=== PATIENT | male | born 1965 | race Caucasian/White ===

== ENCOUNTER 2017-06-11 16:34 | Emergency (ER) | payer MEDICAID, SELFPAY ==
[2017-06-11] VITALS (7 sets, daily range): BP systolic 116–139; BP diastolic 72–75; PULSE 70–73; RESP 14–18; TEMP 36.7; O2SAT 96–99; BMI 25.4
[2017-06-11 17:24] LABS: Absolute Lymphocyte Count 2.22 X10^3/ul (0.83-4.51); Basophil# 0.05 X10^3/uL; Basophil% 0.7 % (0-1); Eosinophil# 0.12 X10^3/uL; Eosinophils% 1.7 % (0-5); Hemoglobin 14.2 g/dl (13.0-16.5); Lymphocyte # 2.22 X10^3/ul (4.0); Lymphocyte % 31.2 % (19-41); Mean Corp Hgb Conc 33.8 g/gl (32-36); Mean Corpuscular Hgb 30.6 pg (27.0-32.0); Mean Corpuscular Volume 90.5 fL (80-94); Mean Platelet Vol. 10.1 fl (6.2-12.0); Monocyte# 0.67 X10^3/uL; Monocyte% 9.4 % (0-10); Neutrophil # 4.02 X10^3/uL (2.7-7.7); Neutrophil % 56.6 % (47-70); Platelet Count 154 K/mm3 (150-450); RBC Distribution Width CV 14.8 % (11.6-14.6); RBC Distribution Width SD 48.9 fl (35.1-43.9); Red Blood Count 4.64 M/mm3 (4.6-6.2); White Blood Count 7.1 K/mm3 (4.4-11.0)
[2017-06-11 17:25] LABS: POSITIVE COUNT NO; POSITIVE DIFFERENTIAL NO; POSITIVE MORPHOLOGY NO
--- NOTE | 2017-06-11 17:29 | EKG12_ITS ---
Test Reason : MENTAL HEALTH Blood Pressure : / mmHG Vent. Rate : 068 BPM Atrial Rate : 068 BPM P-R Int : 158 ms QRS Dur : 078 ms QT Int : 406 ms P-R-T Axes : 037 005 029 degrees QTc Int : 431 ms Normal sinus rhythm Normal ECG Confirmed by TYRONE REED, JESSENIA ([id number]), commissioning editor IMMANUEL MERIDA ([id number] on 06/19/2017 1:44:49 PM Referred By: BRYANT Confirmed By:JESSENIA HANSEN MD
--- NOTE | 2017-06-11 17:35 | ED.DCSUM_ITS ---
- ER Visit Summary Date of Service: 06/11/17 Chief Complaint: Suicidal ideation History of Present Illness: The patient is a 52 M presenting with suicidal ideation. Patient was seen by his psychiatrist today and sent into the ED for inpatient psychiatric admission. He has been experiencing suicidal ideation, visual and auditory hallucinations. No recent change in medications. History of schizophrenia. Physical Examination: Vitals are stable. Patient is afebrile. Alert no acute distress. HEENT exam is unremarkable. Neck is supple. Lungs are clear and equal bilaterally. Heart is regular rate and rhythm. Abdomen is soft nontender nondistended. Extremities are unremarkable. Skin is warm and dry. No focal neurologic deficit. Depressed affect with suicidal thoughts Remainder of exam is unremarkable. Emergency Department Course and Treatment: CBC, chemistries unremarkable other than sodium 132. Liver enzymes are normal. urinalysis unremarkable. Tox positive for benzos. Alcohol negative. EKG is sinus rhythm rate of 68. Discussed with the counseling center for evaluation. Disposition: Per counseling center Impression: Suicidal ideation This note was generated with [employer] dictation software. It may contain incorrect words, spelling, and punctuation that were not noted in review of the chart prior to signing ED Disposition - Plan for ED Patient: Chief Complaint: Suicidal Referrals: Doug Layton Chi, MD [Primary Care Provider] -
[2017-06-11 17:39] LABS: Bacteria 0 SEEN /hpf (None Seen); Mucous, Urine 0 SEEN /hpf (<or=2+); White Blood Cells 0 SEEN /hpf (0-5)
[2017-06-11 17:52] LABS: Color, Urine Yellow (Yellow); Glucose, Dipstick Normal (Normal); Ketone-Dipstick Negative (Negative); Leukocyte Esterase-Dipstick Negative /ul (Negative); Nitrite-Dipstick Negative (Negative); Occult Blood-Urine 25 /ul (Negative); Protein-Dipstick Negative (Negative); Urine Bilirubin Dipstick Negative (Negative); Urine Clarity Sl. Cloudy (Clear); Urine Urobilinogen 1 mg/dl (Normal)
[2017-06-11 18:17] LABS: Amphetamine Urine VISTA NEGATIVE (<1000 ng/mL); Barbiturate Urine VISTA NEGATIVE (< 200 ng/mL); Benzodiazepine Urine VISTA POSITIVE (< 200 ng/mL); Cocaine Urine VISTA NEGATIVE (< 300 ng/mL); Ecstacy Urine VISTA NEGATIVE (< 500 ng/mL); Methadone Urine VISTA NEGATIVE (< 300 ng/mL); PCP Urine VISTA NEGATIVE (< 25 ng/mL); THC Urine VISTA NEGATIVE (< 50 ng/mL); Vista UDS pH Range 7
[2017-06-11 18:17] LABS: Alcohol, Blood (Medical)-Serum < 3.0 mg/dL
[2017-06-11 18:24] LABS: AST(SGOT) 11 U/L (15-37); Alanine Aminotransfer ALT/SGPT 20 U/L (16-61); Alkaline Phosphatase 67 U/L (45-117); Bilirubin, Direct 0.09 mg/dL (0.00-0.30); Globulin 3.3 g/dL (2.2-4.2); Protein, Total 7.3 g/dL (6.4-8.2)
[2017-06-11 18:27] LABS: Anion Gap 7 (5-15); BUN 9 mg/dL (7-18); BUN/Creat Ratio 12.6 RATIO (10-20); Calcium,Total 8.4 mg/dL (8.5-10.1); Chloride 97 mmol/L (98-107); Creatinine, Serum 0.72 mg/dL (0.70-1.30); EST Glomerular Filtration Rate 122 mL/min (>60); Est Glom Filt Rate - Afr Amer 147 mL/min (>60); Estimated Creatinine Clearance 136.37 ml/min; Glucose 90 mg/dL (74-106); Potassium 3.8 mmol/L (3.5-5.1); Sodium Level 132 mmol/L (136-145)
[2017-06-11 18:30] LABS: Squamous Epithelial Cells - UA 0-5 SEEN /hpf (0-5)
[2017-06-11 18:32] LABS: Red Blood Cells-Urine 0-5 SEEN /hpf (0-5)
--- NOTE | 2017-06-11 20:35 | NURSING ---
CALLED [facility] TO SEE THIS PT, RICHARD IS REGISTER OF [facility] WITH TWO OTHERS PENDING
--- NOTE | 2017-06-11 23:21 | ED.RN ---
Viviana from Crisis called and updated on patients condition. She remains at [facility] and will ob over to see patient as soon as possible.
[2017-06-12] VITALS (21 sets, daily range): BP systolic 113–138; BP diastolic 70–78; PULSE 72–84; RESP 14–20; O2SAT 95–98
--- NOTE | 2017-06-12 17:04 | NURSING ---
OLIVIER WITH CRISIS CALLED AND STATED THAT PATIENT HAS BEEN ACCEPTED AT [facility] WAITING A BED
--- NOTE | 2017-06-12 18:09 | ED.RN ---
ELIAS AT [facility] STATED WE HAVE HAD A LOT OF CODE VIOLETS TODAY, WE ARE TRYING TO GET THE HOSPITAL CALMED DOWN AND THEN WE WILL CALL WITH HIS ROOM
--- NOTE | 2017-06-12 23:13 | ED.RN ---
[facility]cardo called and spoke with admission nurse for possible room assignment. At this time they are not able to accept any new patients into the unit because of multiple code violets and patient acuity is too high. Patient will be first to be accepted tomorrow morning. correction workers made aware at this time. Covering doctor made aware.
[2017-06-13] VITALS (11 sets, daily range): BP systolic 109–131; BP diastolic 71–94; PULSE 16–100; RESP 14–18; TEMP 36.8; O2SAT 95–100
--- NOTE | 2017-06-13 07:49 | NURSING ---
PATIENT REFUSED MORNING MEDICATIONS THIS AM. PT ALSO REFUSED TO HAVE VITALS TAKEN. PT IGNORED RN AND COVERED UP HEAD WITH BLANKET. RN CALLED TO ORDER PATIENT BREAKFAST.
[2017-06-13] MEDS: Divalproex Sodium 250 MG Tablet 500 MG PO ×3 (09:59→20:42)
[2017-06-13] MEDS: Gabapentin 600 MG Tablet 300 MG PO ×3 (10:01→20:42)
[2017-06-13] MEDS: Pantoprazole Sodium 40 MG Tablet PO (10:01)
[2017-06-13] MEDS: Haloperidol 5 MG Tablet 10 MG PO (10:01)
[2017-06-13] MEDS: Benztropine 2 MG Tablet PO (10:01)
[2017-06-13] MEDS: Sertraline 100 MG Tablet 200 MG PO (10:02)
[2017-06-13] MEDS: OXcarbazepine 300 MG Tablet 450 MG PO (10:02)
--- NOTE | 2017-06-13 10:21 | ED.RN ---
patient was finally compliant and took am medications. pt also allowed rn to take vitals. pt went outside with quality assurance group leader and security to smoke. pt is being cooperative.
--- NOTE | 2017-06-13 14:17 | ED.RN ---
1400-Patient sitting up on edge of bed in no distress. Vitals checked as noted. Denies c/o pain. Patient with worker from [facility] out to smoke. Ambulates with steady gait. Await crisis counselor for re-eval and bed assignment at [place]. Await meal tray from nutrition services and meds from pharmacy.
--- NOTE | 2017-06-13 16:30 | ED.RN ---
TID MEDICATION HELD TILL 9PM D/T AFTERNOON DOSE GIVEN AT 3PM.
[2017-06-14] VITALS (15 sets, daily range): BP systolic 104–121; BP diastolic 63–79; PULSE 62–90; RESP 15–18; O2SAT 96–100
[2017-06-14] MEDS: Gabapentin 600 MG Tablet 300 MG PO ×2 (06:19→11:13)
[2017-06-14] MEDS: Divalproex Sodium 250 MG Tablet 500 MG PO ×2 (06:20→11:13)
[2017-06-14] MEDS: Levothyroxine 88 MCG Tablet PO (07:31)
[2017-06-14] MEDS: Haloperidol 5 MG Tablet 10 MG PO (11:15)
[2017-06-14] MEDS: Benztropine 2 MG Tablet PO (11:15)
[2017-06-14] MEDS: OXcarbazepine 300 MG Tablet 450 MG PO (11:17)
[2017-06-14] MEDS: Sertraline 100 MG Tablet 200 MG PO (11:17)
[2017-06-14] MEDS: Pantoprazole Sodium 40 MG Tablet PO (11:27)
--- NOTE | 2017-06-14 12:25 | ED.RN ---
CALLED NOAM HAD TO LEAVE MESSAGE WITH ELIAS IN THE CENTRAL NURSING OFFICE
== END 2017-06-14 16:55 ==
PROVIDERS: Emergency Provider Emergency Medicine; Family Provider Family Medicine Geriatric Medicine; PCP Family Medicine Geriatric Medicine
DX: F32.9 Major depressive disorder, single episode, unspecified (principal); F20.9 Schizophrenia, unspecified; R45.851 Suicidal ideations; Z72.0 Tobacco use; Z79.899 Other long term (current) drug therapy
CPT/HCPCS: 36415; 80048; 80076; 80307; 80320; 81001; 85025; 93005; 99284; G0480

== ENCOUNTER → 2017-07-10 08:07 | Outpatient (CLI) | payer MEDICAID, SELFPAY ==
[2017-07-10 10:08] LABS: AST(SGOT) 19 U/L (15-37); Alanine Aminotransfer ALT/SGPT 26 U/L (16-61); Albumin, Serum 3.9 g/dL (3.2-5.0); Alkaline Phosphatase 76 U/L (45-117); Cholesterol 122 mg/dL (200); Globulin 3.4 g/dL (2.2-4.2); High Density Lipoprotein 41 mg/dL; Protein, Total 7.3 g/dL (6.4-8.2); Triglycerides 99 mg/dL; Very Low Density Lipoprotein 20 mg/dL (5-40)
== END ==
PROVIDERS: Family Provider Family Medicine Geriatric Medicine; PCP Family Medicine Geriatric Medicine; Visit Provider Physician Assistant Medical
DX: E78.5 Hyperlipidemia, unspecified (principal); Z79.899 Other long term (current) drug therapy
CPT/HCPCS: 36415; 80061; 80076

== ENCOUNTER 2017-07-20 17:12 | Emergency (ER) | payer MEDICAID, SELFPAY ==
[2017-07-20 17:14] VITALS: BP 139/67; PULSE 114; RESP 20; TEMP 36.3; O2SAT 99; BMI 29.4
[2017-07-20 17:53] LABS: Absolute Lymphocyte Count 1.98 X10^3/ul (0.83-4.51); Absolute Neutrophil Count 4.4 X10^3/uL (2.0-7.7); Basophil# 0.03 X10^3/uL; Basophil% 0.4 % (0-1); Eosinophil# 0.08 X10^3/uL; Eosinophils% 1.1 % (0-5); Hematocrit 43.5 % (40-54); Hemoglobin 14.6 g/dl (13.0-16.5); Lymphocyte # 1.98 X10^3/ul (4.0); Lymphocyte % 28.2 % (19-41); Mean Corp Hgb Conc 33.6 g/gl (32-36); Mean Corpuscular Hgb 30.2 pg (27.0-32.0); Mean Corpuscular Volume 90.1 fL (80-94); Mean Platelet Vol. 9.2 fl (6.2-12.0); Monocyte# 0.51 X10^3/uL; Monocyte% 7.3 % (0-10); Neutrophil # 4.41 X10^3/uL (2.7-7.7); Neutrophil % 62.7 % (47-70); Platelet Count 179 K/mm3 (150-450); RBC Distribution Width CV 14.5 % (11.6-14.6); RBC Distribution Width SD 47.8 fl (35.1-43.9); Red Blood Count 4.83 M/mm3 (4.6-6.2)
[2017-07-20] MEDS: LORazepam 2 MG/ML Syringe 0.5 MG IV (17:56)
[2017-07-20 17:57] LABS: POSITIVE COUNT NO; POSITIVE DIFFERENTIAL NO; POSITIVE MORPHOLOGY NO
[2017-07-20 18:26] LABS: Anion Gap 9 (5-15); BUN 13 mg/dL (7-18); BUN/Creat Ratio 16.1 RATIO (10-20); Calcium,Total 8.7 mg/dL (8.5-10.1); Chloride 100 mmol/L (98-107); Creatinine, Serum 0.81 mg/dL (0.70-1.30); EST Glomerular Filtration Rate 106 mL/min (>60); Est Glom Filt Rate - Afr Amer 128 mL/min (>60); Estimated Creatinine Clearance 107.65 ml/min; Glucose 136 mg/dL (74-106); Potassium 3.3 mmol/L (3.5-5.1); Sodium Level 133 mmol/L (136-145)
[2017-07-20 18:41] LABS: Valproic Acid (Depakene) Level 58 ug/mL (50-100)
--- NOTE | 2017-07-20 18:57 | ED.DCSUM_ITS ---
- ER Visit Summary Date of Service: 07/20/17 Chief Complaint: Seizure History of Present Illness: The patient is a 52 M with reported seizure lasting approximately 10 minutes witnessed by longterm staff member. She states that he had taken a shower then walked into the living room. He fell to the floor on his right side and started shaking with grand mal seizure like activity. She called EMS. Patient was reportedly post ictal with EMS. Staff member does report the patient's Depakote was recently decreased from 3 times daily to twice daily by his psychiatrist. They now realize that the psychiatrist had not originally order that medication. Last seizure was approximately 2 years ago. Patient follows with a neurologist in [place]. Physical Examination: Blood pressure is 139/67, temperature 97.4, heart rate 114 , respiratory rate 20, pulse ox 99% on room air. Head and neck examination is unremarkable. I see no sign of trauma. There is no tongue injury. Heart is regular rate and rhythm. Lung sounds are clear. Abdomen is soft and nontender. Patient does move all 4 extremities and answers questions appropriately. Test Results: CBC is unremarkable. Chemistry studies reveal a sodium of 133 and potassium 3.3. His glucose is 136. His Depakote level is on the lower end of therapeutic at 58. Emergency Department Course and Treatment: Patient was given 0.5 mg of IV Ativan. On repeat evaluation is resting comfortably without complaint. He is given a dose of Depakote 500 mg here. They are to increase his Depakote dosing back to the original 3 times a day and have his Depakote level rechecked next week. He was sent with a prescription for Diastat as needed. Treatment Plan: [] Disposition: Discharge Impression: Breakthrough seizure This note was generated with [employer] dictation software. It may contain incorrect words, spelling, and punctuation that were not noted in review of the chart prior to signing ED Disposition - Plan for ED Patient: Disposition: Home or Assisted Living Chief Complaint: Anxiety Instructions: ED Seizure Recurrent Prescriptions: Diazepam 1 each RC X1 PRN #1 kit PRN Reason: Seizure Referrals: Doug Layton Chi, MD [Primary Care Provider] - Additional Instructions: Increase Depakote to three times a day and have Depakote level rechecked in 1 week.
--- NOTE | 2017-07-20 19:04 | DCINST.ED_ITS ---
ED Disposition - Plan for ED Patient: Disposition: Home or Assisted Living Chief Complaint: Anxiety Instructions: ED Seizure Recurrent Prescriptions: Diazepam 1 each RECTAL X1 PRN #1 kit PRN Reason: Seizure Referrals: Doug Layton Chi, MD [Primary Care Provider] - Additional Instructions: Increase Depakote to three times a day and have Depakote level rechecked in 1 week.
--- NOTE | 2017-07-20 19:06 | ED.DEP ---
ED Disposition - Plan for ED Patient: Disposition: Home or Assisted Living Chief Complaint: Anxiety Instructions: ED Seizure Recurrent Prescriptions: Diazepam 1 each RC X1 PRN #1 kit PRN Reason: Seizure Referrals: Doug Layton Chi, MD [Primary Care Provider] - Additional Instructions: Increase Depakote to three times a day and have Depakote level rechecked in 1 week.
[2017-07-20] MEDS: Divalproex Sodium 250 MG Tablet 500 MG PO (19:12)
[2017-07-20 19:37] VITALS: BP 110/64; PULSE 68; RESP 16; O2SAT 99
[2017-07-20 20:50] VITALS: BP 111/64; PULSE 73; RESP 14
== END 2017-07-20 20:53 | disposition home or self-care (01) ==
PROVIDERS: Emergency Provider Emergency Medicine; Family Provider Family Medicine Geriatric Medicine; PCP Family Medicine Geriatric Medicine
DX: G40.409 Other generalized epilepsy and epileptic syndromes, not intractable, without status epilepticus (principal); J44.9 Chronic obstructive pulmonary disease, unspecified; E11.9 Type 2 diabetes mellitus without complications; I10 Essential (primary) hypertension; K21.9 Gastro-esophageal reflux disease without esophagitis; F32.9 Major depressive disorder, single episode, unspecified; F41.9 Anxiety disorder, unspecified; Z72.0 Tobacco use; Z79.899 Other long term (current) drug therapy
CPT/HCPCS: 80048; 80164; 85025; 96374; 99285; A4216

== ENCOUNTER → 2017-09-18 10:57 | Outpatient (CLI) | payer MEDICAID, SELFPAY ==
[2017-09-18 11:42] LABS: Absolute Lymphocyte Count 1.64 X10^3/ul (0.83-4.51); Absolute Neutrophil Count 3.3 X10^3/uL (2.0-7.7); Basophil# 0.04 X10^3/uL; Basophil% 0.7 % (0-1); Eosinophil# 0.11 X10^3/uL; Eosinophils% 1.9 % (0-5); Hematocrit 42.1 % (40-54); Lymphocyte # 1.64 X10^3/ul (4.0); Mean Corp Hgb Conc 35.6 g/gl (32-36); Mean Corpuscular Hgb 31.6 pg (27.0-32.0); Mean Corpuscular Volume 88.6 fL (80-94); Mean Platelet Vol. 9.6 fl (6.2-12.0); Neutrophil # 3.33 X10^3/uL (2.7-7.7); Neutrophil % 56.9 % (47-70); POSITIVE COUNT NO; POSITIVE DIFFERENTIAL NO; POSITIVE MORPHOLOGY NO; Platelet Count 166 K/mm3 (150-450); RBC Distribution Width CV 13.8 % (11.6-14.6); RBC Distribution Width SD 44.5 fl (35.1-43.9); Red Blood Count 4.75 M/mm3 (4.6-6.2); White Blood Count 5.9 K/mm3 (4.4-11.0)
[2017-09-18 12:09] LABS: ALB/GLOB Ratio 1.2 RATIO (0.9-2.4); AST(SGOT) 13 U/L (15-37); Alanine Aminotransfer ALT/SGPT 16 U/L (16-61); Albumin, Serum 3.5 g/dL (3.2-5.0); Alkaline Phosphatase 55 U/L (45-117); Anion Gap 6 (5-15); BUN 10 mg/dL (7-18); BUN/Creat Ratio 13.8 RATIO (10-20); Calcium,Total 8.3 mg/dL (8.5-10.1); Chloride 97 mmol/L (98-107); Creatinine, Serum 0.72 mg/dL (0.70-1.30); EST Glomerular Filtration Rate 120 mL/min (>60); Est Glom Filt Rate - Afr Amer 145 mL/min (>60); Glucose 91 mg/dL (74-106); Potassium 4.4 mmol/L (3.5-5.1); Protein, Total 6.5 g/dL (6.4-8.2); Sodium Level 128 mmol/L (136-145); Thyroid Stim Hormone (TSH) 2.79 uIU/mL (0.358-3.74)
== END ==
PROVIDERS: Family Provider Family Medicine Geriatric Medicine; PCP Family Medicine Geriatric Medicine; Visit Provider Family Medicine Geriatric Medicine
DX: E11.9 Type 2 diabetes mellitus without complications (principal); E78.4 Other hyperlipidemia
CPT/HCPCS: 36415; 80053; 84443; 85025

== ENCOUNTER 2017-12-08 14:36 | Emergency (ER) | payer MEDICAID, SELFPAY ==
[2017-12-08] VITALS (9 sets, daily range): BP systolic 106–118; BP diastolic 60–84; PULSE 71–103; RESP 12–15; TEMP 36.7; O2SAT 95–98
--- NOTE | 2017-12-08 15:11 | ED.VISSUMM ---
- ER Visit Summary Date of Service: 12/08/17 Chief Complaint: Mental health evaluation History of Present Illness: The patient is a 52 M who presents with thoughts of harming other people today. Patient states he was having sexual thoughts toward 2 females today. Patient states he felt like he might become aggressive and act on those thoughts. Patient currently denies any suicidal or homicidal ideations. Patient has a history of schizophrenia. Caregiver states that when the patient gets these thoughts he then becomes suicidal later on. Caregiver states that the patient was brought into have evaluation by crisis for possible admission. Physical Examination: Vital signs are stable. Patient is afebrile. Patient is in no acute distress. Oral mucosa is pink and moist. Neck is supple. There is no JVD noted. Heart was regular rate and rhythm. Lungs showed a few scattered wheezes. There is good respiratory effort noted. There are no retractions noted. Abdomen is soft. Bowel sounds are normal. There is no tenderness. Cranial nerves II through XII are intact. There are no focal motor or sensory deficits noted. Patient has a flat affect and a depressed mood. Patient denies any suicidal or homicidal ideations at present time. The remaining physical exam is within normal limits. Test Results: EKG showed normal sinus rhythm with a rate of 66. There are no acute ST or T-wave changes noted. Chest x-ray does not show any acute cardiopulmonary process. CBC was normal. Metabolic profile showed mild hyponatremia of 128 and hypochloremia of 92. Urine tox screen and serum alcohol level were normal. Emergency Department Course and Treatment: Patient was given a liter bolus of normal saline. Crisis was contacted and will be in to evaluate the patient. Crisis contacted [facility] and patient will be transferred there. Currently, we are waiting on a bed there. Disposition: Transfer to [facility] Impression: Schizophrenia This note was generated with [employer] dictation software. It may contain incorrect words, spelling, and punctuation that were not noted in review of the chart prior to signing ED Disposition - Plan for ED Patient: Disposition: Psychiatric Hospital or Unit Chief Complaint: Mental Health Diagnosis: Schizophrenia Referrals: Doug Layton Chi, MD [Primary Care Provider] -
[2017-12-08 15:31] LABS: Absolute Lymphocyte Count 1.69 X10^3/ul (0.83-4.51); Basophil# 0.04 X10^3/uL; Basophil% 0.6 % (0-1); Eosinophil# 0.07 X10^3/uL; Eosinophils% 1.1 % (0-5); Hematocrit 39.2 % (40-54); Hemoglobin 13.7 g/dl (13.0-16.5); Lymphocyte # 1.69 X10^3/ul (4.0); Lymphocyte % 26.2 % (19-41); Mean Corp Hgb Conc 34.9 g/gl (32-36); Mean Corpuscular Hgb 30.6 pg (27.0-32.0); Mean Corpuscular Volume 87.5 fL (80-94); Mean Platelet Vol. 9.4 fl (6.2-12.0); Monocyte# 0.61 X10^3/uL; Monocyte% 9.5 % (0-10); Neutrophil % 62.1 % (47-70); Platelet Count 146 K/mm3 (150-450); RBC Distribution Width CV 14.4 % (11.6-14.6); RBC Distribution Width SD 46.6 fl (35.1-43.9); Red Blood Count 4.48 M/mm3 (4.6-6.2); White Blood Count 6.4 K/mm3 (4.4-11.0)
[2017-12-08 15:35] LABS: POSITIVE COUNT NO; POSITIVE DIFFERENTIAL NO; POSITIVE MORPHOLOGY NO
[2017-12-08 16:06] LABS: Anion Gap 11 (5-15); BUN 8 mg/dL (7-18); BUN/Creat Ratio 10.8 RATIO (10-20); Calcium,Total 8.3 mg/dL (8.5-10.1); Chloride 92 mmol/L (98-107); Creatinine, Serum 0.74 mg/dL (0.70-1.30); EST Glomerular Filtration Rate 117 mL/min (>60); Est Glom Filt Rate - Afr Amer 141 mL/min (>60); Estimated Creatinine Clearance 154.95 ml/min; Glucose 119 mg/dL (74-106); Potassium 3.7 mmol/L (3.5-5.1); Sodium Level 128 mmol/L (136-145)
[2017-12-08 16:17] LABS: Amphetamine Urine VISTA NEGATIVE (<1000 ng/mL); Barbiturate Urine VISTA NEGATIVE (< 200 ng/mL); Benzodiazepine Urine VISTA NEGATIVE (< 200 ng/mL); Cocaine Urine VISTA NEGATIVE (< 300 ng/mL); Ecstacy Urine VISTA NEGATIVE (< 500 ng/mL); Methadone Urine VISTA NEGATIVE (< 300 ng/mL); PCP Urine VISTA NEGATIVE (< 25 ng/mL); THC Urine VISTA NEGATIVE (< 50 ng/mL); Vista UDS pH Range 6
[2017-12-08] MEDS: 0.9% Normal Saline 1,000 ML 1000 ML IV (16:31)
--- NOTE | 2017-12-08 16:34 | NURSING ---
CALLED [facility]IS TO SEE PATIENT
[2017-12-08 22:13] LABS: Valproic Acid (Depakene) Level 76 ug/mL (50-100)
[2017-12-08 22:15] LABS: AST(SGOT) 14 U/L (15-37); Alanine Aminotransfer ALT/SGPT 19 U/L (16-61); Albumin, Serum 3.5 g/dL (3.2-5.0); Alkaline Phosphatase 57 U/L (45-117); Bilirubin, Direct 0.12 mg/dL (0.00-0.30); Globulin 2.8 g/dL (2.2-4.2); Protein, Total 6.3 g/dL (6.4-8.2)
[2017-12-08 22:23] LABS: T4 Total, Thyroxin 9.6 ug/dL (4.5-12.1); Thyroid Stim Hormone (TSH) 2.53 uIU/mL (0.358-3.74)
[2017-12-09] VITALS (15 sets, daily range): BP systolic 82–129; BP diastolic 41–82; PULSE 54–78; RESP 12–20; O2SAT 94–99
--- NOTE | 2017-12-09 09:30 | ED.RN ---
ACCEPTED AT [facility], WAITING ON BED. FIRST ON LIST.
--- NOTE | 2017-12-09 09:54 | ED.RN ---
PLEASE CALL ANTHONY AT [phone] WHEN PT IS TRANSFERRED. SHE IS HIS JAIL NURSE.
[2017-12-09] MEDS: Levothyroxine 88 MCG Tablet PO (10:36)
[2017-12-09] MEDS: Gabapentin 300 MG Capsule PO ×2 (10:37→15:50)
[2017-12-09] MEDS: Sertraline 100 MG Tablet 200 MG PO (10:38)
[2017-12-09] MEDS: OXcarbazepine 300 MG Tablet PO (10:38)
[2017-12-09] MEDS: Divalproex Sodium 250 MG Tablet 500 MG PO ×2 (10:39→15:50)
[2017-12-09] MEDS: Pantoprazole Sodium 40 MG Tablet PO (10:39)
[2017-12-09] MEDS: Benztropine 2 MG Tablet PO (10:40)
[2017-12-09] MEDS: Haloperidol 5 MG Tablet 10 MG PO (10:41)
[2017-12-09] MEDS: busPIRone 5 MG Tablet 10 MG PO ×2 (10:41→15:50)
--- NOTE | 2017-12-09 11:27 | NURSING ---
CALLED [facility] FOR AN UPDATE. ELVER IS WITH A PATIENT
[2017-12-09] MEDS: Acetaminophen 500 MG Tablet 1000 MG PO (15:48)
--- NOTE | 2017-12-09 17:47 | ED.RN ---
1700-pt up to use bathroom. gait steady. denies dizziness. required no assist and was cooperative.
--- NOTE | 2017-12-09 18:05 | NURSING ---
[facility] FOR TRANSPORT. ETA IS ABOUT 15 TO 20 MIN
== END 2017-12-09 18:35 ==
PROVIDERS: Emergency Provider Emergency Medicine; Family Provider Family Medicine Geriatric Medicine; PCP Family Medicine Geriatric Medicine
DX: F20.9 Schizophrenia, unspecified (principal); R56.9 Unspecified convulsions; E87.1 Hypo-osmolality and hyponatremia; E87.8 Other disorders of electrolyte and fluid balance, not elsewhere classified; Z79.899 Other long term (current) drug therapy
CPT/HCPCS: 71045; 80048; 80076; 80164; 80307; 80320; 84436; 84443; 85025; 93005; 96360; 99285; J7030; A4216; G0480

== ENCOUNTER 2018-03-05 05:57 | Day surgery (SDC) | payer MEDICAID, SELFPAY ==
[2018-03-05] VITALS (7 sets, daily range): BP systolic 104–115; BP diastolic 61–83; PULSE 63–85; RESP 18; TEMP 36.3–36.9; O2SAT 95–100; BMI 27.6
[2018-03-05] MEDS: Ipratropium/Albuterol Sulfate 3 ML AMPUL.NEB INHALATION (07:08)
[2018-03-05] MEDS: Lisinopril 2.5 MG Tablet PO (07:15)
[2018-03-05] MEDS: Tetracaine 0.5% Ophthalmic Bottle 1 DRP (07:41)
[2018-03-05] MEDS: Povidone Iodine 30 ML Opthalmic Sol 1 DRP (07:42)
== END 2018-03-05 09:29 | disposition home or self-care (01) ==
LOC: SDC 05:58 → AC 05:59
PROVIDERS: Family Provider Family Medicine Geriatric Medicine; PCP Family Medicine Geriatric Medicine; Referring Provider Ophthalmology; Visit Provider Ophthalmology
PROC: (CPT 66984; principal; 2018-03-05 07:15)
DX: H25.812 Combined forms of age-related cataract, left eye (principal); H26.491 Other secondary cataract, right eye; J44.9 Chronic obstructive pulmonary disease, unspecified; E11.9 Type 2 diabetes mellitus without complications; E07.9 Disorder of thyroid, unspecified; E78.00 Pure hypercholesterolemia, unspecified; K21.9 Gastro-esophageal reflux disease without esophagitis; F20.9 Schizophrenia, unspecified; F32.9 Major depressive disorder, single episode, unspecified; F17.200 Nicotine dependence, unspecified, uncomplicated; Z79.899 Other long term (current) drug therapy; Z96.1 Presence of intraocular lens
CPT/HCPCS: 66984; 94640; J7120; J2405

== ENCOUNTER → 2018-03-22 13:40 | Outpatient (CLI) | payer MEDICAID, SELFPAY ==
[2018-03-15 14:02] VITALS: BMI 27.1
[2018-03-22 17:11] LABS: Absolute Lymphocyte Count 1.73 X10^3/ul (0.83-4.51); Basophil# 0.05 X10^3/uL; Basophil% 0.9 % (0-1); Eosinophil# 0.11 X10^3/uL; Hematocrit 40.6 % (40-54); Hemoglobin 13.6 g/dl (13.0-16.5); Lymphocyte # 1.73 X10^3/ul (4.0); Lymphocyte % 31.4 % (19-41); Mean Corp Hgb Conc 33.5 g/gl (32-36); Mean Corpuscular Hgb 30.2 pg (27.0-32.0); Monocyte# 0.61 X10^3/uL; Monocyte% 11.1 % (0-10); Neutrophil # 2.97 X10^3/uL (2.7-7.7); Neutrophil % 53.9 % (47-70); Platelet Count 199 K/mm3 (150-450); RBC Distribution Width CV 13.9 % (11.6-14.6); RBC Distribution Width SD 45.9 fl (35.1-43.9); Red Blood Count 4.51 M/mm3 (4.6-6.2); White Blood Count 5.5 K/mm3 (4.4-11.0)
[2018-03-22 17:12] LABS: POSITIVE COUNT NO; POSITIVE DIFFERENTIAL NO; POSITIVE MORPHOLOGY NO
[2018-03-22 17:43] LABS: ALB/GLOB Ratio 1.2 RATIO (0.9-2.4); AST(SGOT) 11 U/L (15-37); Alanine Aminotransfer ALT/SGPT 21 U/L (16-61); Albumin, Serum 3.7 g/dL (3.2-5.0); Alkaline Phosphatase 62 U/L (45-117); Anion Gap 11 (5-15); BUN 10 mg/dL (7-18); BUN/Creat Ratio 12.5 RATIO (10-20); Calcium,Total 8.7 mg/dL (8.5-10.1); Chloride 101 mmol/L (98-107); EST Glomerular Filtration Rate 106 mL/min (>60); Est Glom Filt Rate - Afr Amer 129 mL/min (>60); Globulin 3.1 g/dL (2.2-4.2); Glucose 84 mg/dL (74-106); PSA,Total - Annual Screen 0.36 ng/mL (0.00-4.00); Potassium 4.1 mmol/L (3.5-5.1); Protein, Total 6.8 g/dL (6.4-8.2); Sodium Level 137 mmol/L (136-145); Thyroid Stim Hormone (TSH) 3.89 uIU/mL (0.358-3.74)
== END ==
PROVIDERS: Family Provider Family Medicine Geriatric Medicine; PCP Family Medicine Geriatric Medicine; Visit Provider Family Medicine Geriatric Medicine
DX: R53.83 Other fatigue (principal); Z12.5 Encounter for screening for malignant neoplasm of prostate
CPT/HCPCS: 36415; 80053; 84153; 84443; 85025; G0103

== ENCOUNTER → 2018-04-08 12:26 | Outpatient (CLI) | payer MEDICAID, SELFPAY ==
[2018-03-15 14:02] VITALS: BMI 27.1
--- NOTE | 2018-04-08 12:28 | CT_ITS ---
STUDY: CT CHEST/THORAX WITHOUT CONTRAST REASON FOR EXAM: Male, 53 years old. 74 pack-year smoking history. RADIATION DOSAGE (If Supplied By Facility): CTDIvol = ( 3.02 ) mGy, DLP = ( 100.43 ) mGycm TECHNIQUE: Transaxial imaging was performed without the administration of intravenous contrast material. Multiplanar coronal and sagittal images were reformatted. Individualized dose optimization techniques were used for this CT. COMPARISON: Portable AP upright chest x-ray December 08, 2017. FINDINGS: 2.5 mm noncalcified nodule seen in the posterior medial superior segment of the left lower lobe on series 2 image 81, series 602 image 192. The lungs are otherwise clear. There is no demonstrated pleural abnormality. Normal heart and pericardium. There are calcifications of the coronary arteries. Normal mediastinum. Normal hilar regions. Normal unenhanced pulmonary arteries. There is atherosclerotic calcification of the aortic arch and takeoff of the left subclavian artery. There are multi-level degenerative changes of the thoracic spine. There is no demonstrated abnormality of the visualized upper abdomen. CT/Chest without Contrast IMPRESSION: 1. 2.5 mm noncalcified nodule in the superior segment of left lower lobe. Per Fleischner criteria, this does not require specific radiographic follow-up. 2. Mild atherosclerotic vascular calcifications. Electronically Signed: Chris Kaminski MD at 20:03 EST , Service support ,
--- OUTSIDE RECORDS SUMMARY | 2018-05-25 07:30 | XMS RPT_ITS ---
:1965 Author Organization OHIP Support Name Relationship Address Phone D Unavailable Unavailable Unavailable GAVIOTA, ANTHONY Unavailable [facility] + [address] [place] [address] D Unavailable Unavailable Unavailable GAVIOTA, ANTHONY Unavailable [facility] + [address] [place] [address] D Unavailable Unavailable Unavailable GAVIOTA, ANTHONY Unavailable [facility] + [address] [place] [address] D Unavailable Unavailable Unavailable GAVIOTA, ANTHONY Unavailable [facility] + [address] [place] [address] D Unavailable Unavailable Unavailable GAVIOTA, ANTHONY Unavailable [facility] + [address] [place] [address] D Unavailable Unavailable Unavailable GAVIOTA, ANTHONY Unavailable [facility] + [address] [place] [address] D Unavailable Unavailable Unavailable GAVIOTA, ANTHONY Unavailable [facility] + [address] [place] [address] D Unavailable Unavailable Unavailable GAVIOTA, ANTHONY Unavailable [facility] + [address] [place] [address] D Unavailable Unavailable Unavailable GAVIOTA, ANTHONY Unavailable [facility] + [address] [place] [address] D Unavailable Unavailable Unavailable GAVIOTA, ANTHONY Unavailable [facility] + [address] [place] [address] D Unavailable Unavailable Unavailable GAVIOTA, ANTHONY Unavailable [facility] + [address] [place], [place] [address] D Unavailable Unavailable Unavailable GAVIOTA, ANTHONY Unavailable [facility] + [address] [place] [address] D Unavailable Unavailable Unavailable GAVIOTA, ANTHONY Unavailable [facility] + [address] [place] [address] Care Team Providers Name Role Phone BIBIANA MERIDA Admitting Unavailable BIBIANA MERIDA Attending Unavailable BIBIANA MERIDA Primary Care Unavailable Calin, Doug Chi Primary Care Unavailable Giselle Henry Attending Unavailable Anabela Mesa Attending Unavailable Anabela Mesa Referring Unavailable Calin, Doug Chi Primary Care Unavailable Calin, Doug Chi Primary Care Unavailable Brittany Huff Attending Unavailable Carson Hansen Attending Unavailable Giselle Henry Referring Unavailable Thor Slater Attending Unavailable Calin, Doug Chi Referring Unavailable Calin, Doug Chi Primary Care Unavailable Calin, Doug Chi Attending Unavailable Calin, Doug Chi Primary Care Unavailable Calin, Doug Chi Primary Care Unavailable Naif Byrnes Attending Unavailable Michael Sanches Attending Unavailable Michael Sanches Referring Unavailable Calin, Doug Chi Primary Care Unavailable Thor Slater Attending Unavailable Calin, Doug Chi Referring Unavailable Calin, Doug Chi Attending Unavailable Calin, Doug Chi Primary Care Unavailable Melva Farah Attending Unavailable Thor Slater Attending Unavailable Thor Slater Referring Unavailable Calin, Doug Chi Primary Care Unavailable Calin, Doug Chi Attending Unavailable Calin, Doug Chi Referring Unavailable Calin, Doug Chi Primary Care Unavailable PROBLEMS PROBLEMS DATE TYPE CONDITION / CODE ATTENDING STATUS SOURCE 03/22/2018 Unknown R53.83 - Other Calin, Doug Chi Active [place] fatigue / Community R53.83(ICD-10) Hospital Repository 03/22/2018 Unknown Z12.5 - Encounter Calin, Doug Chi Active [place] for screening for Community malignant neoplasm [facility] prostate / Repository Z12.5(ICD-10) 03/15/2018 Unknown E78.5 - Thor Slater Active [place] Hyperlipidemia, Community unspecified / Hospital E78.5(ICD-10) Repository 03/15/2018 Unknown Z72.0 - Tobacco use Thor Slater Active [place] / Z72.0(ICD-10) [facility] Hospital Repository 03/15/2018 Unknown Z87.898 - Personal Thor Slater Active [place] history of other Community specified conditions Hospital / Z87.898(ICD-10) Repository 09/18/2017 Unknown E11.9 - Type 2 CalinDoug osorio Chi Active [place] diabetes mellitus Community without Hospital complications / Repository E11.9(ICD-10) 09/18/2017 Unknown E78.4 - Other Calin, Doug Chi Active [place] hyperlipidemia / Community E78.4(ICD-10) Hospital Repository 09/01/2017 Active GEN IDIO EPILEPSY BIBIANA MERIDA Active [facility] [place] NOT INTRCT W/O SE / Hospital G40.309(ICD-10) Repository 09/01/2017 Principle GEN IDIO EPILEPSY BIBIANA MERIDA Active [place] Diagnosis NOT INTRCT W/O SE / Hospital G40.309(ICD-10) Repository 07/10/2017 Unknown Z79.899 - Other long [place], Active [place] term (current) drug Anabela Lexii [facility] therapy / Hospital Z79.899(ICD-10) Repository PROCEDURES PROCEDURES No Procedure Records FoundRESULTS RESULTS CHEST WITHOUT Observed: 04/08/2018 Status: F Source: [place] CONTRAST 12:28 PM [facility] HOSPITAL REPOSITORY [facility] Imaging Services [address] [place] [address] Chest without Contrast MR#: [id number] Acct: [id number] Name: RUFINO LEIVA Rep #: [id number] : 1965 M 53 From: Bill Kaminski MD PCP: Doug Layton MD, Chi Status: REG CLI Study: Chest without Contrast Date of Exam: 04/08/18 Exam# [id number] Ordering Dr: Doug Layton MD STUDY: CT CHEST/THORAX WITHOUT CONTRAST REASON FOR EXAM: Male, 53 years old. 74 pack-year smoking history. RADIATION DOSAGE (If Supplied By Facility): CTDIvol = ( 3.02 ) mGy, DLP = ( 100.43 ) mGycm TECHNIQUE: Transaxial imaging was performed without the administration of intravenous contrast material. Multiplanar coronal and sagittal images were reformatted. Individualized dose optimization techniques were used for this CT. COMPARISON: Portable AP upright chest x-ray December 08, 2017. FINDINGS: 2.5 mm noncalcified nodule seen in the posterior medial superior segment of the left lower lobe on series 2 image 81, series 602 image 192. The lungs are otherwise clear. There is no demonstrated pleural abnormality. Normal heart and pericardium. There are calcifications of the coronary arteries. Normal mediastinum. Normal hilar regions. Normal unenhanced pulmonary arteries. There is atherosclerotic calcification of the aortic arch and takeoff of the left subclavian artery. There are multi-level degenerative changes of the thoracic spine. There is no demonstrated abnormality of the visualized upper abdomen. CT/Chest without Contrast IMPRESSION: 1. 2.5 mm noncalcified nodule in the superior segment of left lower lobe. Per Fleischner criteria, this does not require specific radiographic follow-up. 2. Mild atherosclerotic vascular calcifications. Electronically Signed: Chris Kaminski MD at 20:03 EST , Service support , CC: Doug Layton MD [employer]: Signed CBC W/DIFF, AUTOMATED Collected: 03/22/2018 Status: F Source: [place] 1:41 PM [facility] REPOSITORY TYPE CODE TESTS RESULT OUT OF RANGE REFERENCE UNITS LAB L100.1000 4.4-11.0 K/mm3 Normal WBC 5.5 LAB L100.1200 4.6-6.2 M/mm3 Low RBC 4.51 LAB L100.1300 13.0-16.5 g/dl Normal HGB 13.6 LAB L100.1400 40-54 % Normal HCT 40.6 LAB L100.1500 80-94 fL Normal MCV 90.0 LAB L100.1600 27.0-32.0 pg Normal MCH 30.2 LAB L100.1700 32-36 g/gl Normal MCHC 33.5 LAB L100.1810 11.6-14.6 % Normal RDW CV 13.9 LAB L100.1820 35.1-43.9 fl High RDW SD 45.9 LAB L100.1900 150-450 K/mm3 Normal PLT 199 LAB L100.2000 6.2-12.0 fl Normal MPV 10.0 LAB L100.2100 47-70 % Normal NEUT% 53.9 LAB L100.2200 19-41 % Normal LY% 31.4 LAB L100.2300 0-10 % High MONO% 11.1 LAB L100.2400 0-5 % Normal EO% 2.0 LAB L100.2500 0-1 % Normal BASO% 0.9 LAB L100.2550 0.0-0.9 % Normal IM GRAN % 0.700 Result Comment: IG% - Immature Granulocytes (promyelocytes, myelocytes and metamyelocytes) > 1% indicates that a LEFT SHIFT is Present. LAB L100.2620 2.0-7.7 X10 3/uL Normal Absolute Neut 3.0 LAB L100.2720 0.83-4.51 X10 3/ul Normal Absolute Lymph 1.73 Performed By: #### L100.0100 #### [facility] [address] [place], [address] COMPREHENSIVE METABOLIC Collected: 03/22/2018 Status: F Source: [facility] 1:41 PM [facility] REPOSITORY TYPE CODE TESTS RESULT OUT OF RANGE REFERENCE UNITS LAB L501.0100 74-106 mg/dL Normal GLU 84 Result Comment: Please note revised GLUCOSE reference range effective 2017. LAB L501.1000 7-18 mg/dL Normal BUN 10 LAB L501.1100 0.70-1.30 mg/dL Normal CREAT,SERUM 0.80 Result Comment: The validity of the calculated GFR AND GFRAA in patients over 70 years has not been determined. Clinical correlation is essential. LAB L501.1110 >60 mL/min Normal EST GFR 106 Result Comment: Non- GFR Calc LAB L501.1115 >60 mL/min Normal EST GFR - AA 129 Result Comment: GFR Calc LAB L501.1300 10-20 RATIO Normal BUN/CRE 12.5 LAB L501.1500 6.4-8.2 g/dL T Normal PROT 6.8 LAB L501.1800 3.2-5.0 g/dL Normal ALB 3.7 LAB L501.1950 2.2-4.2 g/dL Normal GLOB 3.1 LAB L501.2000 0.9-2.4 RATIO Normal A/G 1.2 LAB L501.2200 8.5-10.1 mg/dL CA Normal 8.7 LAB L501.4100 15-37 U/L Low AST 11 LAB L501.4305 45-117 U/L Normal ALK P 62 LAB L501.4405 16-61 U/L Normal ALT 21 LAB L501.4600 0.20-1.00 mg/dL T Normal BILI 0.30 LAB L501.5300 136-145 mmol/L NA Normal 137 LAB L501.5600 3.5-5.1 mmol/L K Normal 4.1 LAB L501.5900 98-107 mmol/L CL Normal 101 LAB L501.6100 21.0-32.0 mmol/L Normal CO2 25.0 LAB L501.6200 5-15 Normal GAP 11 Performed By: #### L500.4050, L501.9520, L501.9910 #### [facility] [address] [facility] [place], [place], [id number] THYROID STIM HORMONE Collected: 03/22/2018 Status: F Source: [place] ([facility]) 1:41 PM [facility] REPOSITORY TYPE CODE TESTS RESULT OUT OF RANGE REFERENCE UNITS LAB L501.9520 0.358-3.74 uIU/mL High TSH 3.89 Performed By: #### L500.4050, L501.9520, L501.9910 #### [facility] [address] [place], [place], [address] PSA,TOTAL - ANNUAL Collected: 03/22/2018 Status: F Source: [place] SCREEN 1:41 PM [facility] REPOSITORY TYPE CODE TESTS RESULT OUT OF RANGE REFERENCE UNITS LAB L501.9910 0.00-4.00 ng/mL Normal PSA,TOT 0.36 SCREEN Result Comment: This test was performed using the TPSA assay method for the [employer] chemistry system. Values obtained with different assay methods cannot be used interchangably. When changing PSA assays in the course of monitoring a patient, additional sequential testing should be carried out to confirm baseline values. Performed By: #### L500.4050, L501.9520, L501.9910 #### [facility] [address] [facility] [place], [address] CARDIOLOGY VISIT Observed: 03/15/2018 Status: F Source: [place] REPORT 2:24 PM [facility] REPOSITORY [facility] [address] [place] [address] OFFICE VISIT Date of Service: 03/15/18 MR#: [id number] Acct: [id number] Name: RUFINO LEIVA Rep #: [id number] : 1965 Provider: Thor Slater MD Age/Sex: 53/M [place] [facility] Status: Signed HPI HPI Chief Complaint: Routine f/u Details: Referring physician Dr. Calin Clark Willian is a very pleasant 53-year-old diabetic gentleman with a history of hypertension, hypercholesterolemia, unknown family history of cardiac disease, with bipolar/schizophrenia, and obstructive sleep apnea currently being treated with CPAP. In addition the patient has smoked since age 14, between 4 packs and currently one half pack of cigarettes per day. He has tried NicoDerm patch as well as electronic cigarettes, but this has not been successful. Despite his above history, he is fairly pleasant to talk to, and appears to understand and answer questions appropriately. Patient was in normal health up until 07/09/13 at which time the patient developed new onset midsternal chest pain which he describes as sharp, midsternal, and a 10 out 10 in severity. This occurred while he was crocheting. He went to the emergency room at which time an EKG was performed which demonstrated normal sinus rhythm, normal axis, normal intervals, no evidence of previous myocardial infarction or acute changes. Chest x- ray was negative. He ruled out for myocardial infarction and was subsequently sent home after his enzymes were negative 2. Patient underwent a stress echo on 08/10/13 showed an EF of 65% and no evidence of ischemia. He has had no cath. He was previously admitted to [facility] on 06/02/14 for what appears to be suicidal/homicidal tendencies after use of MDMA, ecstasy. Patient was treated and released and is here for follow-up. From a cardiac standpoint he denies any exertional chest pain, angina, shortness of breathor dyspnea on exertion. He is taking and tolerating his medications well. He has had episodes of burning atypical recumbent type chest pain which is relieved with drinking water. Apparently he needs cataract surgery in near future as well. Unfortunately the patient continues to smoke about a pack of cigarettes per day. In addition he is being evaluated by Dr. Muller for CPAP at night with oxygen supplementation. He denies any exertional chest pain but occasionally has a typical chest pain. Several months ago the patient had a seizure in his kitchen, which was witnessed. He was brought to the emergency room and his had his medicines adjusted, currently on Gabapentin and divalproex. Unfortunately since her last visit the patient continues to smoke about a pack per day. Recently while he was sitting at his work, he developed substernal chest pressure, radiating to his shoulder, but no shortness of breath, nausea or vomiting. The pain lasted several minutes, and then resolved. Patient denies any exertional anginal symptoms. He is taking and tolerating his medicines well. In our office his blood pressure is 90/50, heart rate is 70 and regular. His physical exam is as below. His lipids as of 01/15/17 show an LDL of 47 and HDL 34. His lipids as of 07/10/17 show an LDL of 61 and HDL of 41. Intake Vital Signs03/15/18 Height 6 ft 03/15/18 Weight: 200 lb 03/15/18 Body Mass Index (BMI) 27.1 03/15/18 Blood Pressure 90/50 L Intake Visit Reasons: 6 M Collection Manager Required: No Accompanied by: Caregiver Is patient in pain?: No Allergies venom-honey bee [bee venom (honey bee)] Allergy (Verified 03/11/18 17:33) Swelling ziprasidone HCl [From Geodon] Adverse Reaction (Severe, Verified 03/11/18 17:33) Syncope ziprasidone mesylate [From Geodon] Adverse Reaction (Severe, Verified 03/11/18 17:33) Syncope Medications Atorvastatin Calcium [Lipitor] 40 mg PO QHS 12/08/17 [History Confirmed 03/15/18] Benztropine Mesylate 2 mg PO DAILY 12/08/17 [History Confirmed 03/15/18] Divalproex Sodium [Depakote] 500 mg PO TID 12/08/17 [History Confirmed 03/15/18] Haloperidol 10 mg PO BID 12/08/17 [History Confirmed 03/15/18] Ipratropium [Atrovent (SP)] 2 puff INHALATION PRN PRN 12/08/17 [History Confirmed 03/15/18] Levothyroxine [Synthroid] 88 mcg PO DAILY 12/08/17 [History Confirmed 03/15/18] Medroxyprogesterone Acetate [Provera] 10 mg PO DAILY 12/08/17 [History Confirmed 03/15/18] Oxcarbazepine [Trileptal] 300 mg PO BID 12/08/17 [History Confirmed 03/15/18] Sertraline HCl [Zoloft] 200 mg PO DAILY 12/08/17 [History Confirmed 03/15/18] Albuterol IH (ProAir) [Proair Hfa (SP)Vent Pts] 1 - 2 puff INHALATION Q6H PRN PRN 02/26/18 [History Confirmed 03/15/18] Famotidine [Pepcid] 40 mg PO DAILY 02/26/18 [History Confirmed 03/15/18] Lisinopril [Zestril] 2.5 mg PO DAILY 02/26/18 [History Confirmed 03/15/18] Saliva Stimulant [Biotene Moisturizing Mouth] 44.3 ml MM TID 02/26/18 [History Confirmed 03/15/18] PFSH Medical History Tobacco abuse disorder (Chronic) History of chest pain (Chronic) Schizophrenia (Chronic) Bipolar disorder (Chronic) Hypothyroidism (Chronic) Diabetes mellitus type II, controlled (Chronic) Hyperlipidemia (Chronic) Surgical History History of appendectomy (Chronic) Family History Unknown No problems noted. Social History Smoking Status: Current every day smoker ROS Const Const: Positive for other (Feels well overall but states had chest pain this am); negative for fatigue, weakness, body ache, fever(s), headache(s), chills, frequent falls, night sweats, daytime sleepiness, difficulty sleeping, excessive sweating, weight gain, weight loss, increased appetite, poor appetite or anorexia Eyes Eyes: Negative for blind spots, loss of peripheral vision, transient loss of vision, blurry vision, change in vision, double vision, floaters, tunnel vision or other ENT ENT: Negative for dizziness, hearing loss, tinnitus, Nosebleed/epistaxis, balance problems, post nasal drip, lip swelling, tongue swelling, bleeding gums, hoarseness, neck pain, dry mouth, other or headache(s) Cardio Chest Pain: Yes (States has not had until this am. Left pectoral region) Character: sharp Duration: brief (seconds or less) Palpitations: No Edema: None, Bilateral (Mild in lower legs) Muscle aches with walking: None Resp Respiratory: Positive for SOB with activity (occasional); negative for SOB at rest, SOB orthopnea\SOB lying down, Coughing up blood/hemoptysis, chest congestion, pain on inspiration, snoring, stridor, wheezing, crackles, paroxysmal nocturnal dyspnea or other GI GI: Negative nausea, vomiting, heartburn, constipation, belching, bloating, cramping, vomiting blood/hematemesis, bright, red blood in stools, black,tarry stools, loose stools, Difficulty Swallowing or other : Negative for hematuria, frequent nighttime urination/ nocturia, erectile dysfunction or abnormal vaginal bleeding Musc Musc: Negative for balance problems, muscle aches/ myalgia, muscle weakness or joint pain Skin Skin: Negative redness, non-healing lesions, rash, unusual bruising, skin ulcer, wounds, jaundice or other Neuro Neuro: Negative for blurry vision, double vision, dizziness, lightheadedness, near syncope, syncope, orthostatic symptoms, confusion, memory loss, restless legs, vertigo, seizures, lack of coordination, other, weakness, headache(s) or frequent falls [place] Hematologic/Lymphatic: Negative for easy bleeding, easy bruising, enlarged lymph nodes or other Endo Endo: Negative for cold intolerance, heat intolerance, flushing, increased thirst/drinking, increased hunger, hair loss, hair growth, other, fatigue or excessive sweating Psych Psych: Negative for anxiety, depression, thoughts of harming anyone, thoughts of harming yourself, visual hallucinations, panic attacks or audible hallucinations Allergy Allergy/Immunology: Negative for lip swelling, Negative for tongue swelling, Negative for rash, Negative for throat swelling, Negative for hives Cardiology Exam Const Appearance: cooperative, healthy appearing and no acute distress Nutritional Appearance: well nourished Orientation: alert, oriented x3 and oriented to person Head Head: normal to inspection, atraumatic and normocephalic Nose: external nose normal Face and Sinus: face symmetric Mouth: oral mucosae normal Eyes General: appearance normal, both eyes and all related structures Eyelids: eyelids normal Conjunctivae: conjunctivae normal Pupils: PERRL and normal by confrontation EOM: EOM intact bilaterally Neck Neck: normal visual inspection and full ROM Carotids: normal carotid upstroke Chest Chest inspection: normal inspection of the chest Auscultation: Bilateral: Clear to Auscultation Cardio Palpation: normal PMI Rate: regular rate Rhythm: regular rhythm Heart sounds: S1 normal and S2 normal GI GI: normal to inspection, no hepatosplenomegaly and bowel sounds present Neuro General: alert, oriented x3, awake, CN's II-XI intact bilaterally and moves all extremities Skin Skin: no rashes or lesions noted Extremities Pulses: Normal: Right Femoral Pulse, Left Femoral Pulse, Right Dorsalis Pedis Pulse, Left Dorsalis Pedis Pulse, Right Posterior Tibial Pulse, Left Posterior Tibial Pulse, Right Radial Pulse, Left Radial Pulse Lower Extremity Edema: None: Bilateral Psych Psychological: normal affect Assessment AND Plan 1. History of chest pain Z87.898 Plan 1. Chest pain: Although the patient's symptoms are somewhat atypical for coronary ischemia, he has had an extensive history of smoking since age 16. In addition he has hypertension and he is older than 50 years old. I recommended the patient undergo a dobutamine echocardiogram to evaluate his coronary function and to evaluate for ischemia. If this is grossly abnormal for ischemia I would recommend a diagnostic coronary angiogram. In the meantime he will continue his lisinopril, and baby aspirin. Orders Orders: 2. Tobacco abuse disorder Z72.0 Plan 2. Tobacco abuse: I strongly recommended the patient discontinue all tobacco products, and the patient is voiced understanding and is trying. The longest he has ever gone throughout his life without smoking is about 90 days. I am confident that if he can reach 90 days he can completely quit. Orders Orders: 3. Hyperlipidemia E78.5 Plan 3. Hyperlipidemia: His LDL and HDL cholesterol are at goal. Continue Lipitor. 4. Return office in 6 months. This note was generated using a voice recognition system and there may be incorrect words, spelling or punctuation that were not noted when reviewing the office note prior to saving. Orders Orders: Plan Detail Other Medications Discontinued: Follow Up +6M ([place]) Coding Level of Care Code Off vis,est,level 3 Diagnoses History of chest pain Z87.898 Tobacco abuse disorder Z72.0 Hyperlipidemia E78.5 Coding Level of Care Code Off vis,est,level 3 Diagnoses History of chest pain Z87.898 Tobacco abuse disorder Z72.0 Hyperlipidemia E78.5 03/15/18 1424 <Electronically signed by Thor Slater MD> Date Thor Slater MD Cosigner Signature: Date (if applicable) CC: Doug Layton MD 12 LEAD ELECTROCARDIOGRAM Observed: 12/11/2017 Status: F Source: [place] 1:38 PM [facility] REPOSITORY [facility] Cardiovascular Services [address] [place] [id number] 12 Lead EKG 12/08/17 1602 MR#: [id number] Acct: [id number] Name: RUFINO LEIVA Rep #: [id number] : 1965 52 From: Anton Steiner MD Attending Dr: Status: DEP ER Ordering Dr: Naif Byrnes DO Date: 12/08/17 Location: ED Sex: M C Admitted: Test Reason : MEDICAL CLEARANCE Blood Pressure : / mmHG Vent. Rate : 066 BPM Atrial Rate : 066 BPM P-R Int : 162 ms QRS Dur : 082 ms QT Int : 418 ms P-R-T Axes : 050 030 055 degrees QTc Int : 438 ms Normal sinus rhythm Normal ECG Confirmed by ANTON STEINER MD ([id number]), acquisitions editor IMMANUEL MERIDA ([id number]) on 12/11/2017 1:37:39 PM Referred By: MONSTER Confirmed By:ANTON STEINER MD 12/11/17 1337 Date Anton Steiner MD CC: Naif Byrnes DO; Doug Layton MD Signed EMERGENCY DEPARTMENT Observed: 12/08/2017 Status: F Source: [place] SUMMARY 11:46 PM [facility] REPOSITORY [facility] Medical Records Department [address] [place] [address] Emergency Department Summary 12/08/17 1511 MR#: [id number] Acct: [id number] Name: RUFINO LEIVA Rep #: [id number] : 1965 52 From: Naif Byrnes DO PCP: Doug Layton MD, Chi Status: REG ER - ER Visit Summary Date of Service: 12/08/17 Chief Complaint: Mental health evaluation History of Present Illness: The patient is a 52 M who presents with thoughts of harming other people today. Patient states he was having sexual thoughts toward 2 females today. Patient states he felt like he might become aggressive and act on those thoughts. Patient currently denies any suicidal or homicidal ideations. Patient has a history of schizophrenia. Caregiver states that when the patient gets these thoughts he then becomes suicidal later on. Caregiver states that the patient was brought into have evaluation by crisis for possible admission. Physical Examination: Vital signs are stable. Patient is afebrile. Patient is in no acute distress. Oral mucosa is pink and moist. Neck is supple. There is no JVD noted. Heart was regular rate and rhythm. Lungs showed a few scattered wheezes. There is good respiratory effort noted. There are no retractions noted. Abdomen is soft. Bowel sounds are normal. There is no tenderness. Cranial nerves II through XII are intact. There are no focal motor or sensory deficits noted. Patient has a flat affect and a depressed mood. Patient denies any suicidal or homicidal ideations at present time. The remaining physical exam is within normal limits. Test Results: EKG showed normal sinus rhythm with a rate of 66. There are no acute ST or T-wave changes noted. Chest x-ray does not show any acute cardiopulmonary process. CBC was normal. Metabolic profile showed mild hyponatremia of 128 and hypochloremia of 92. Urine tox screen and serum alcohol level were normal. Emergency Department Course and Treatment: Patient was given a liter bolus of normal saline. Crisis was contacted and will be in to evaluate the patient. Crisis contacted [facility] and patient will be transferred there. Currently, we are waiting on a bed there. Disposition: Transfer to [facility] Impression: Schizophrenia This note was generated with [employer] dictation software. It may contain incorrect words, spelling, and punctuation that were not noted in review of the chart prior to signing ED Disposition - Plan for ED Patient: Disposition: Psychiatric Hospital or Unit Chief Complaint: Mental Health Diagnosis: Schizophrenia Referrals: Doug Layton Chi, MD [Primary Care Provider] - What to do if you have Problems For any increased pain, shortness of breath, bleeding, nausea or vomiting, chest pain, or any unexpected problems, contact your Primary Care Provider. Call [facility] ([phone]) or report to the closest Emergency Room. Call 911 if necessary. 12/08/17 2346 <Electronically signed by aNif Byrnes DO> Date Naif Byrnes DO Cosigner Signature (If Indicated): Date CC: Doug Layton MD CBC W/DIFF, AUTOMATED Collected: 12/08/2017 Status: F Source: [place] 3:21 PM [facility] REPOSITORY TYPE CODE TESTS RESULT OUT OF RANGE REFERENCE UNITS LAB L100.1000 4.4-11.0 K/mm3 Normal WBC 6.4 LAB L100.1200 4.6-6.2 M/mm3 Low RBC 4.48 LAB L100.1300 13.0-16.5 g/dl Normal HGB 13.7 LAB L100.1400 40-54 % Low HCT 39.2 LAB L100.1500 80-94 fL Normal MCV 87.5 LAB L100.1600 27.0-32.0 pg Normal MCH 30.6 LAB L100.1700 32-36 g/gl Normal MCHC 34.9 LAB L100.1810 11.6-14.6 % Normal RDW CV 14.4 LAB L100.1820 35.1-43.9 fl High RDW SD 46.6 LAB L100.1900 150-450 K/mm3 Low PLT 146 LAB L100.2000 6.2-12.0 fl Normal MPV 9.4 LAB L100.2100 47-70 % Normal NEUT% 62.1 LAB L100.2200 19-41 % Normal LY% 26.2 LAB L100.2300 0-10 % Normal MONO% 9.5 LAB L100.2400 0-5 % Normal EO% 1.1 LAB L100.2500 0-1 % Normal BASO% 0.6 LAB L100.2550 0.0-0.9 % Normal IM GRAN % 0.500 Result Comment: IG% - Immature Granulocytes (promyelocytes, myelocytes and metamyelocytes) > 1% indicates that a LEFT SHIFT is Present. LAB L100.2620 2.0-7.7 X10 3/uL Normal Absolute Neut 4.0 LAB L100.2720 0.83-4.51 X10 3/ul Normal Absolute Lymph 1.69 Performed By: #### L100.0100 #### [facility] [address] [place], [place], [address] ALCOHOL, BLOOD Collected: 12/08/2017 Status: F Source: [place] (MEDICAL)-SERUM 3:21 PM [facility] REPOSITORY TYPE CODE TESTS RESULT OUT OF RANGE REFERENCE UNITS LAB L501.9100 mg/dL Normal SERUM 6.0 ETOH Result Comment: The serum:whole blood ethanol ratio is approximately 1.14 and varies slightly with hematocrit. Medical Alcohol reference interval and critical value in non-tolerant individuals; 50 - 100 Impairment 100 Intoxication 100 - 250 Severe Poisoning 250 - 400 Deep/possible fatal coma Performed By: #### L501.9100 #### [facility] [address] [place], [place], [address] BASIC METABOLIC Collected: 12/08/2017 Status: F Source: [place] PROFILE (BMP) 3:21 PM [facility] REPOSITORY TYPE CODE TESTS RESULT OUT OF RANGE REFERENCE UNITS LAB L501.0100 74-106 mg/dL High GLU 119 Result Comment: Fasting Glucose result from 100 to 125 mg/dL suggests IMPAIRED HOMEOSTASIS per A.D.A. criteria. Please note revised GLUCOSE reference range effective 2017. LAB L501.1000 7-18 mg/dL Normal BUN 8 LAB L501.1100 0.70-1.30 mg/dL Normal CREAT,SERUM 0.74 Result Comment: The validity of the calculated GFR AND GFRAA in patients over 70 years has not been determined. Clinical correlation is essential. LAB L501.1110 >60 mL/min Normal EST GFR 117 Result Comment: Non- GFR Calc LAB L501.1115 >60 mL/min Normal EST GFR - AA 141 Result Comment: GFR Calc LAB L501.1255 ml/min Normal Estimated CRCL 154.95 LAB L501.1300 10-20 RATIO BUN/CRE Normal 10.8 LAB L501.2200 8.5-10 mg/dL Low .1 CA 8.3 LAB L501.5300 136-14 mmol/L Low 5 NA 128 LAB L501.5600 3.5-5. mmol/L 1 K Normal 3.7 LAB L501.5900 98-107 mmol/L Low CL 92 LAB L501.6100 21.0-3 mmol/L 2.0 CO2 Normal 25.0 LAB L501.6200 5-15 GAP Normal 11 Performed By: #### L500.2500 #### [facility] [address] [place], [place], [id number] VALPROIC ACID Collected: 12/08/2017 Status: F Source: [place] (DEPAKENE) LEVEL 3:21 PM [facility] REPOSITORY TYPE CODE TESTS RESULT OUT OF RANGE REFERENCE UNITS LAB L501.8100 50-100 ug/mL Normal VALPROIC ACID 76 Performed By: #### L501.8100 #### [facility] [address] [place], [place], [address] LIVER PROFILE Collected: 12/08/2017 Status: F Source: [place] 3:21 PM [facility] REPOSITORY TYPE CODE TESTS RESULT OUT OF RANGE REFERENCE UNITS LAB L501.1500 6.4-8.2 g/dL Low T PROT 6.3 LAB L501.1800 3.2-5.0 g/dL Normal ALB 3.5 LAB L501.1950 2.2-4.2 g/dL Normal GLOB 2.8 LAB L501.4100 15-37 U/L Low AST 14 LAB L501.4305 45-117 U/L Normal ALK P 57 LAB L501.4405 16-61 U/L Normal ALT 19 LAB L501.4600 0.20-1.00 mg/dL Normal T BILI 0.30 LAB L501.4700 0.00-0.30 mg/dL Normal D BILI 0.12 Performed By: #### L500.3400 #### [facility] [address] [place], [address] T4 TOTAL, THYROXIN Collected: 12/08/2017 Status: F Source: [place] 3:21 PM [facility] REPOSITORY TYPE CODE TESTS RESULT OUT OF RANGE REFERENCE UNITS LAB L501.9310 4.5-12.1 ug/dL T4 Normal THYROXIN 9.6 Performed By: #### L501.9310, L501.9520 #### [facility] [address] [place], [address] THYROID STIM HORMONE Collected: 12/08/2017 Status: F Source: [place] (TSH) 3:21 PM [facility] REPOSITORY TYPE CODE TESTS RESULT OUT OF RANGE REFERENCE UNITS LAB L501.9520 0.358-3.74 uIU/mL Normal TSH 2.53 Performed By: #### L501.9310, L501.9520 #### [facility] [address] [facility] [place], [address] URINE DRUG SCREEN Collected: 12/08/2017 Status: F Source: [place] (VISTA) 3:15 PM [facility] REPOSITORY TYPE CODE TESTS RESULT OUT OF RANGE REFERENCE UNITS LAB L505.0075 TO BE Normal CONFIRMED Result Comment: CONFIRMATORY TESTING FOR ALL POSITIVE URINE DRUG SCREEN RESULTS WILL ONLY BE SENT OUT UPON PHYSICIAN ORDER. VISTA Urine Drug Screen methods provide only preliminary analytical test results. A more specific alternate chemical method must be used in order to obtain a confirmed analytical result. Gas chromatography/mass spectrometery (GC/MS) is the preferred confirmatory method. Clinical consideration and professional judgement should be applied to any drug of abuse test result, particularly when preliminary positive results are used. URINE TCA TESTING MUST BE ORDERED SEPARATELY. USE TEST MNEMONIC: [facility] LAB L505.5005 VISTA UDS PH 6 Normal LAB L505.5015 <1000 ng/mL AMPHETAMINES Normal NEGATIVE LAB L505.5025 < 200 ng/mL BARBITIURATES Normal NEGATIVE LAB L505.5035 < 200 ng/mL BENZODIAZIPINE Normal NEGATIVE LAB L505.5045 < 300 ng/mL COCAINE Normal NEGATIVE LAB L505.5055 < 500 ng/mL ECSTACY Normal NEGATIVE LAB L505.5065 < 300 ng/mL METHADONE Normal NEGATIVE LAB L505.5075 < 300 ng/mL OPIATES Normal NEGATIVE LAB L505.5085 < 25 ng/mL PCP Normal NEGATIVE LAB L505.5095 < 50 ng/mL THC Normal NEGATIVE Performed By: #### L505.5000 #### [facility] [address] [facility] [place], [address] CHEST 1 VIEW Observed: 12/08/2017 Status: F Source: [place]KO (PORTABLE) 3:11 PM [facility] REPOSITORY [facility] Imaging Services [address] [place] [address] Chest 1 View (Portable) MR#: [id number] Acct: [id number] Name: RUFINO LEIVA Rep #: [id number] : 1965 M 52 From: Trell Pruitt MD PCP: Calin REED,[facility] Status: REG ER Study: Chest 1 View (Portable) Date of Exam: 12/08/17 Exam# [id number] Ordering Dr: Naif Byrnes DO STUDY: X-RAY CHEST REASON FOR EXAM: Male, 52 years old. Clearance. TECHNIQUE: Single AP portable view of the chest. COMPARISON: Comparison is made with prior study dated July 09, 2013. FINDINGS: The lungs are clear and expanded. There is no demonstrated pleural abnormality. Normal size heart. Normal mediastinum and lane. Normal visualized pulmonary arteries. Normal visualized aortic arch and descending thoracic aorta. There are diffuse degenerative changes of the visualized thoracic spine. Normal visualized ribs, clavicles, and shoulders. There is no demonstrated abnormality of the visualized soft tissue structures of the upper abdomen. RAD/Chest 1 View (Portable) IMPRESSION: Normal x-ray examination of the chest. Electronically Signed: Trell Pruitt MD at 15:48 EDT Tel [phone], Service support , CC: Naif Byrnes DO; Doug Layton MD [employer]: Signed CBC W/DIFF, AUTOMATED Collected: 09/18/2017 Status: F Source: [place]ON 10:59 AM [facility] REPOSITORY TYPE CODE TESTS RESULT OUT OF RANGE REFERENCE UNITS LAB L100.1000 4.4-11.0 K/mm3 Normal WBC 5.9 LAB L100.1200 4.6-6.2 M/mm3 Normal RBC 4.75 LAB L100.1300 13.0-16.5 g/dl Normal HGB 15.0 LAB L100.1400 40-54 % Normal HCT 42.1 LAB L100.1500 80-94 fL Normal MCV 88.6 LAB L100.1600 27.0-32.0 pg Normal MCH 31.6 LAB L100.1700 32-36 g/gl Normal MCHC 35.6 LAB L100.1810 11.6-14.6 % Normal RDW CV 13.8 LAB L100.1820 35.1-43.9 fl High RDW SD 44.5 LAB L100.1900 150-450 K/mm3 Normal PLT 166 LAB L100.2000 6.2-12.0 fl Normal MPV 9.6 LAB L100.2100 47-70 % Normal NEUT% 56.9 LAB L100.2200 19-41 % Normal LY% 28.0 LAB L100.2300 0-10 % High MONO% 12.0 LAB L100.2400 0-5 % Normal EO% 1.9 LAB L100.2500 0-1 % Normal BASO% 0.7 LAB L100.2550 0.0-0.9 % Normal IM GRAN % 0.500 Result Comment: IG% - Immature Granulocytes (promyelocytes, myelocytes and metamyelocytes) > 1% indicates that a LEFT SHIFT is Present. LAB L100.2620 2.0-7.7 X10 3/uL Normal Absolute Neut 3.3 LAB L100.2720 0.83-4.51 X10 3/ul Normal Absolute Lymph 1.64 Performed By: #### L100.0100 #### [facility] [address] [place], [address] COMPREHENSIVE METABOLIC Collected: 09/18/2017 Status: F Source: [place]ON [facility] 10:59 AM [facility] REPOSITORY TYPE CODE TESTS RESULT OUT OF RANGE REFERENCE UNITS LAB L501.0100 74-106 mg/dL Normal GLU 91 Result Comment: Please note revised GLUCOSE reference range effective 2017. LAB L501.1000 7-18 mg/dL Normal BUN 10 LAB L501.1100 0.70-1.30 mg/dL Normal CREAT,SERUM 0.72 Result Comment: The validity of the calculated GFR AND GFRAA in patients over 70 years has not been determined. Clinical correlation is essential. LAB L501.1110 >60 mL/min Normal EST GFR 120 Result Comment: Non- GFR Calc LAB L501.1115 >60 mL/min Normal EST GFR - AA 145 Result Comment: GFR Calc LAB L501.1300 10-20 RATIO Normal BUN/CRE 13.8 LAB L501.1500 6.4-8.2 g/dL T Normal PROT 6.5 LAB L501.1800 3.2-5.0 g/dL Normal ALB 3.5 LAB L501.1950 2.2-4.2 g/dL Normal GLOB 3.0 LAB L501.2000 0.9-2.4 RATIO Normal A/G 1.2 LAB L501.2200 8.5-10.1 mg/dL Low CA 8.3 LAB L501.4100 15-37 U/L Low AST 13 LAB L501.4305 45-117 U/L Normal ALK P 55 LAB L501.4405 16-61 U/L Normal ALT 16 LAB L501.4600 0.20-1.00 mg/dL T Normal BILI 0.30 LAB L501.5300 136-145 mmol/L Low NA 128 LAB L501.5600 3.5-5.1 mmol/L K Normal 4.4 LAB L501.5900 98-107 mmol/L Low CL 97 LAB L501.6100 21.0-32.0 mmol/L Normal CO2 25.0 LAB L501.6200 5-15 Normal GAP 6 Performed By: #### L500.4050, L501.9520 #### [facility] [address] [place], [place], [address] THYROID STIM HORMONE Collected: 09/18/2017 Status: F Source: DEVON (TSH) 10:59 AM [facility] REPOSITORY TYPE CODE TESTS RESULT OUT OF RANGE REFERENCE UNITS LAB L501.9520 0.358-3.74 uIU/mL Normal TSH 2.79 Performed By: #### L500.4050, L5.9520 #### [facility] [address] [facility] [place], [address] CBC WITH DIFF Collected: 08/31/2017 Status: F Source: [facility] 10:36 AM HOSPITAL REPOSITORY Order Comment: LAST DOSE TODAY TYPE CODE TESTS RESULT OUT OF RANGE REFERENCE UNITS LAB WBC(LOINC) 3.6-10.3 x(10)3/cumm Normal WBC 6.2 LAB RBC(LOINC) 4.20-5.80 X(10)6/cumm Normal RBC 4.69 LAB HGB(LOINC) 12.9-17.5 gm/dL Normal Hgb 14.3 LAB HCT(LOINC) 37.6-50.6 % Normal Hct 42.6 LAB MCV(LOINC) 81.3-96.7 fL Normal MCV 90.7 LAB MCH(LOINC) 27.2-33.6 pg Normal MCH 30.5 LAB MCHC(LOINC) 32.9-35.3 gm/dL Normal MCHC 33.7 LAB RDW(LOINC) 11.1-15.3 % Normal RDW 14.5 LAB PLT(LOINC) 138-367 x(10)3/cumm Normal PLT 174 LAB MPV(LOINC) 6.4-10.0 fL Normal MPV 8.7 LAB NE%(LOINC) 44.9-78.8 % Normal NE% 69.1 LAB LY%(LOINC) 12.2-42.6 % Normal LY% 20.7 LAB MO%(LOINC) 3.3-11.6 % Normal MO% 8.0 LAB EO%(LOINC) 0.0-6.1 % Normal EO% 1.2 LAB BA%(LOINC) 0.0-1.0 % Normal BA% 1.0 LAB NE#(LOINC) 1.3-7.4 x(10)3/cumm Normal NE# 4.3 LAB LY#(LOINC) 0.8-2.9 x(10)3/cumm Normal LY# 1.3 LAB MO#(LOINC) 0.2-0.8 x(10)3/cumm Normal MO# 0.5 LAB EO#(LOINC) 0.0-0.4 x(10)3/cumm Normal EO# 0.1 LAB BA#(LOINC) 0.0-0.1 x(10)3/cumm Normal BA# 0.1 LAB RBCMOR(LOIN C) RBC Morph LAB RBCMOR+(ELENI NC) RBC Morph cont LAB PLTMOR(LOIN C) Plt Morph LAB WBCMOR(LOIN C) WBC Morph Performed By: #### CBCDIFF #### [facility] [place] [facility] [address] [place] [address] COMPREHENSIVE METABOLIC Collected: 08/31/2017 Status: F Source: [facility] 10:36 AM [facility] REPOSITORY Order Comment: LAST DOSE TODAY TYPE CODE TESTS RESULT OUT OF RANGE REFERENCE UNITS LAB NA(LOINC) 136-145 mmol/L Normal Sodium 136 LAB K(LOINC) 3.5-5.1 mmol/L Normal Potassium 4.4 LAB CL(LOINC) 98-107 mmol/L Normal Chloride 100 LAB C02(LOINC) 21-32 mmol/L C02 Normal 27 LAB GLU(LOINC) 74-106 mg/dL Normal Glucose 78 LAB BUN(LOINC) 7-18 mg/dL BUN Normal 15 LAB CREAT(LOIN 0.60-1.30 mg/dL C) Creat Normal 0.77 LAB PROT 6.4-8.2 gm/dL TTL(LOINC) Prot Normal Total 6.8 LAB ALB(LOINC) 3.4-5.0 gm/dL Normal Albumin 3.9 LAB CA(LOINC) 8.5-10.1 mg/dL Normal Calcium 8.9 LAB BILI 0.2-1.0 mg/dL TTL(LOINC) Bili, Normal Total 0.3 LAB ALKP(LOINC 45-117 U/L ) Alk Normal Phos 58 LAB AST(LOINC) 15-37 U/L Low AST 12 LAB ALT(LOINC) 12-78 U/L ALT Normal 18 LAB EGFR(LOINC >=60 mL/min/1.73 ) sqm eGFR Normal >60 LAB EGFR >=60 mL/min/1.73 AA(LOINC) sqm eGFR Normal -Amer >60 LAB ANGAP(LOIN C) Anion Normal Gap 9 Performed By: #### CMP, VPA #### [facility] [address] [place] [address] VALPROIC ACID Collected: 08/31/2017 Status: F Source: [place] 10:36 [facility] REPOSITORY Order Comment: LAST DOSE TODAY TYPE CODE TESTS RESULT OUT OF REFERENCE UNITS RANGE LAB ASTON 50-100 ug/mL ACD(LOINC) High Valproic Acid 114 Performed By: #### CMP, VPA #### [facility] [address] [place] [address] OXCARBAZEPINE METABOLITE Collected: 08/31/2017 Status: F Source: [place] (TRILEPTAL) 10:36 AM [facility] REPOSITORY Order Comment: LAST DOSE TODAY TYPE CODE TESTS RESULT OUT OF RANGE REFERENCE UNITS LAB [id number](LO 8.0-35.0 mcg/mL INC) Normal 13.6 10-Hydroxyca rbazepine Result Comment: Test Performed by [facility], [facility], [address] [place] [address] Zachery Cruz M.D., Ph.D., Director of Laboratories , [place] [id number] Performed By: #### OXCARB #### [facility] [address] [place] [address] CARDIOLOGY VISIT Observed: 08/03/2017 Status: F Source: [place] REPORT 2:23 PM [facility] REPOSITORY [facility] [address] [place], [place] [address]. [address] [place] [address] OFFICE VISIT Date of Service: 08/03/17 MR#: [id number] Acct: [id number] Name: RUFINO LEIVA Rep #: [id number] : 1965 Provider: Thor Slater MD Age/Sex: 52/M [place] [facility] Status: Signed HPI HPI Chief Complaint: Routine f/u Details: Referring physician Dr. Layton Mister Leiva is a very pleasant 52-year-old diabetic gentleman with a history of hypertension, hypercholesterolemia, unknown family history of cardiac disease, with bipolar/schizophrenia, and obstructive sleep apnea currently being treated with CPAP. In addition the patient has smoked since age 14, between 4 packs and currently one half pack of cigarettes per day. He has tried NicoDerm patch as well as electronic cigarettes, but this has not been successful. Despite his above history, he is fairly pleasant to talk to, and appears to understand and answer questions appropriately. Patient was in normal health up until 07/09/13 at which time the patient developed new onset midsternal chest pain which he describes as sharp, midsternal, and a 10 out 10 in severity. This occurred while he was crocheting. He went to the emergency room at which time an EKG was performed which demonstrated normal sinus rhythm, normal axis, normal intervals, no evidence of previous myocardial infarction or acute changes. Chest x- ray was negative. He ruled out for myocardial infarction and was subsequently sent home after his enzymes were negative 2. Patient underwent a stress echo on 08/10/13 showed an EF of 65% and no evidence of ischemia. He has had no cath. He was previously admitted to [facility] on 06/02/14 for what appears to be suicidal/homicidal tendencies after use of MDMA, ecstasy. Patient was treated and released and is here for follow-up. From a cardiac standpoint he denies any exertional chest pain, angina, shortness of breathor dyspnea on exertion. He is taking and tolerating his medications well. He has had episodes of burning atypical recumbent type chest pain which is relieved with drinking water. Apparently he needs cataract surgery in near future as well. Unfortunately the patient continues to smoke about a pack of cigarettes per day. In addition he is being evaluated by Dr. Muller for CPAP at night with oxygen supplementation. He denies any exertional chest pain but occasionally has a typical chest pain. Several months ago the patient had a seizure in his kitchen, which was witnessed. He was brought to the emergency room and his had his medicines adjusted, currently on Gabapentin and divalproex. In our office his blood pressure is 118/62, heart rate is 70 and regular. His physical exam is as below. His lipids as of 01/15/17 show an LDL of 47 and HDL 34. His lipids as of 07/10/17 show an LDL of 61 and HDL of 41. Intake Vital Signs08/03/17 Height 5 ft 11.5 in Intake Visit Reasons: 6 M FU Allergies venom-honey bee [bee venom (honey bee)] Allergy (Verified 07/29/17 18:02) Swelling ziprasidone HCl [From Geodon] Adverse Reaction (Severe, Verified 07/29/17 18:02) Syncope ziprasidone mesylate [From Geodon] Adverse Reaction (Severe, Verified 07/29/17 18:02) Syncope Medications Epinephrine [Epi Pen] 0.3 mg IM X1 05/19/15 [History Confirmed 08/03/17] Divalproex Sodium [Depakote] 500 mg PO TID 06/08/15 [History Confirmed 08/03/17] Albuterol IH (ProAir) [Proair Hfa (SP)Vent Pts] 2 puff INHALATION Q6H PRN PRN 06/12/15 [History Confirmed 08/03/17] Ipratropium [Atrovent (SP)] 2 puff INHALATION BID 06/12/15 [History Confirmed 07/29/17] Gabapentin [Neurontin] 300 mg PO TID 01/30/17 [History Confirmed 08/03/17] MedroxyPROGESTERone [Cycrin,Provera] 10 mg PO DAILY 01/30/17 [History Confirmed 08/03/17] Pantoprazole Sodium [Protonix] 40 mg PO DAILY 01/30/17 [History Confirmed 07/29/17] busPIRone [Buspar] 15 mg PO TID 01/30/17 [History Confirmed 08/03/17] Lisinopril [Zestril] 2.5 mg PO QHS 06/13/17 [History Confirmed 08/03/17] haloperidol 10 mg tablet 10 mg PO BID 07/29/17 [History Confirmed 07/29/17] levothyroxine 88 mcg capsule 88 mcg PO QDAY cap 07/29/17 [History Confirmed 08/03/17] metformin 500 mg tablet 500 mg PO BID 07/29/17 [History Confirmed 07/29/17] oxcarbazepine 300 mg tablet 300 mg PO BID tab 07/29/17 [History Confirmed 07/29/17] sertraline 100 mg tablet 100 mg PO DAILY tab 07/29/17 [History Confirmed 07/29/17] atorvastatin 40 mg tablet 40 mg PO QHS tab 08/03/17 [History Confirmed 08/03/17] Ejection fraction %: 65 to 70 PFSH Medical History Tobacco abuse disorder (Chronic) History of chest pain (Chronic) Schizophrenia (Chronic) Bipolar disorder (Chronic) Hypothyroidism (Chronic) Diabetes mellitus type II, controlled (Chronic) Hyperlipidemia (Chronic) Surgical History History of appendectomy (Chronic) Family History Unknown No problems noted. Social History Smoking Status: Current every day smoker ROS Const Const: Negative for fatigue, weakness, difficulty sleeping, frequent falls, headache(s) or excessive sweating Eyes Eyes: Negative for loss of peripheral vision, transient loss of vision, blurry vision or double vision ENT ENT: Negative for headache(s), dizziness, Nosebleed/epistaxis or balance problems Cardio Chest Pain: No Edema: None Muscle aches with walking: None Resp Respiratory: Negative for SOB with activity, SOB at rest, SOB orthopnea\SOB lying down or paroxysmal nocturnal dyspnea GI GI: Negative nausea or heartburn : Negative for hematuria Musc Musc: Negative for muscle aches/ myalgia, muscle weakness, joint pain or balance problems Skin Skin: Negative non-healing lesions, unusual bruising or rash Neuro Neuro: Negative for weakness, frequent falls, blurry vision, headache(s), dizziness, lightheadedness, orthostatic symptoms or double vision Bradford Hematologic/Lymphatic: Negative for easy bruising Endo Endo: Negative for fatigue, excessive sweating or increased thirst/drinking Psych Psych: Negative for anxiety or depression Allergy Allergy/Immunology: Negative for hives, Negative for rash Cardiology Exam Const Appearance: cooperative, healthy appearing and no acute distress Nutritional Appearance: well nourished Orientation: alert, oriented x3 and oriented to person Head Head: normal to inspection, atraumatic and normocephalic Nose: external nose normal Face and Sinus: face symmetric Mouth: oral mucosae normal Eyes General: appearance normal, both eyes and all related structures Eyelids: eyelids normal Conjunctivae: conjunctivae normal Pupils: PERRL and normal by confrontation EOM: EOM intact bilaterally Neck Neck: normal visual inspection and full ROM Carotids: normal carotid upstroke Chest Chest inspection: normal inspection of the chest Auscultation: Bilateral: Clear to Auscultation Cardio Palpation: normal PMI Rate: regular rate Rhythm: regular rhythm Heart sounds: S1 normal and S2 normal GI GI: normal to inspection, no hepatosplenomegaly and bowel sounds present Neuro General: alert, oriented x3, awake, CN's II-XI intact bilaterally and moves all extremities Skin Skin: no rashes or lesions noted Extremities Pulses: Normal: Right Femoral Pulse, Left Femoral Pulse, Right Dorsalis Pedis Pulse, Left Dorsalis Pedis Pulse, Right Posterior Tibial Pulse, Left Posterior Tibial Pulse, Right Radial Pulse, Left Radial Pulse Lower Extremity Edema: None: Bilateral Psych Psychological: normal affect Assessment AND Plan 1. Tobacco abuse disorder Z72.0 Plan 1. Tobacco abuse: I had a long and thorough discussion with the patient and his social work about the patient's tobacco abuse, and I recommended that he discontinue all tobacco products by the time we meet next. Patient is voiced understanding and has a minute there is very difficult but he will try. 2. Hyperlipidemia E78.5 Plan 2. Hyperlipidemia: Patient's LDL and HDL cholesterol are at goal. Continue Lipitor. 3. Return office in 1 year. This note was generated using a voice recognition system and there may be incorrect words, spelling or punctuation that were not noted when reviewing the office note prior to saving. Plan Detail Other Medications New: Discontinued: Follow Up +1 year ([place]) Coding Level of Care Code Off vis,est,level 3 Diagnoses Tobacco abuse disorder Z72.0 Hyperlipidemia E78.5 Coding Level of Care Code Off vis,est,level 3 Diagnoses Tobacco abuse disorder Z72.0 Hyperlipidemia E78.5 08/03/17 1423 <Electronically signed by Thor Slater MD> Date Thor Slater MD Cosigner Signature: Date (if applicable) CC: EMERGENCY DEPARTMENT Observed: 07/21/2017 Status: F Source: ELKO SUMMARY 2:01 AM [facility] REPOSITORY [facility] Medical Records Department [address] [place] [address] Emergency Department Summary 07/20/17 1856 MR#: [id number] Acct: [id number] Name: RUFINO LEIVA Rep #: [id number] : 1965 52 From: Brittany Huff MD PCP: Calin REED,Doug Jacobs Status: DEP ER - ER Visit Summary Date of Service: 07/20/17 Chief Complaint: Seizure History of Present Illness: The patient is a 52 M with reported seizure lasting approximately 10 minutes witnessed by [facility] staff member. She states that he had taken a shower then walked into the living room. He fell to the floor on his right side and started shaking with grand mal seizure like activity. She called EMS. Patient was reportedly post ictal with EMS. Staff member does report the patient's Depakote was recently decreased from 3 times daily to twice daily by his psychiatrist. They now realize that the psychiatrist had not originally order that medication. Last seizure was approximately 2 years ago. Patient follows with a neurologist in [place]. Physical Examination: Blood pressure is 139/67, temperature 97.4, heart rate 114, respiratory rate 20, pulse ox 99% on room air. Head and neck examination is unremarkable. I see no sign of trauma. There is no tongue injury. Heart is regular rate and rhythm. Lung sounds are clear. Abdomen is soft and nontender. Patient does move all 4 extremities and answers questions appropriately. Test Results: CBC is unremarkable. Chemistry studies reveal a sodium of 133 and potassium 3.3. His glucose is 136. His Depakote level is on the lower end of therapeutic at 58. Emergency Department Course and Treatment: Patient was given 0.5 mg of IV Ativan. On repeat evaluation is resting comfortably without complaint. He is given a dose of Depakote 500 mg here. They are to increase his Depakote dosing back to the original 3 times a day and have his Depakote level rechecked next week. He was sent with a prescription for Diastat as needed. Treatment Plan: [] Disposition: Discharge Impression: Breakthrough seizure This note was generated with [employer] dictation software. It may contain incorrect words, spelling, and punctuation that were not noted in review of the chart prior to signing ED Disposition - Plan for ED Patient: Disposition: Home or Assisted Living Chief Complaint: Anxiety Instructions: ED Seizure Recurrent Prescriptions: Diazepam 1 each RC X1 PRN #1 kit PRN Reason: Seizure Referrals: Doug Layton Chi, MD [Primary Care Provider] - Additional Instructions: Increase Depakote to three times a day and have Depakote level rechecked in 1 week. What to do if you have Problems For any increased pain, shortness of breath, bleeding, nausea or vomiting, chest pain, or any unexpected problems, contact your Primary Care Provider. Call [facility] ([phone]) or report to the closest Emergency Room. Call 911 if necessary. 07/21/17 0201 <Electronically signed by Brittany Huff MD> Date Brittany Huff MD Cosigner Signature (If Indicated): Date CC: Doug Layton MD DISCHARGE INSTRUCTION Observed: 07/20/2017 Status: F Source: DEVON 7:09 PM [facility] REPOSITORY [facility] Medical Records Department [address] [place] [address] Discharge Instruction 07/20/17 1906 MR#: [id number] Acct: [id number] Name: RUFINO LEIVA Indira Rep #: [id number] : 1965 52 From: Brittany Huff MD PCP: Doug Layton MD, Chi Status: REG ER ED Disposition - Plan for ED Patient: Disposition: Home or Assisted Living Chief Complaint: Anxiety Instructions: ED Seizure Recurrent Prescriptions: Diazepam 1 each RC X1 PRN #1 kit PRN Reason: Seizure Referrals: Doug Layton Chi, MD [Primary Care Provider] - Additional Instructions: Increase Depakote to three times a day and have Depakote level rechecked in 1 week. What to do if you have Problems For any increased pain, shortness of breath, bleeding, nausea or vomiting, chest pain, or any unexpected problems, contact your Primary Care Provider. Call [facility] ([phone]) or report to the closest Emergency Room. Call 911 if necessary. 07/20/17 190 <Electronically signed by Brittany Huff MD> Date Brittany Huff MD Cosigner Signature (If Indicated): Date CC: Doug Layton MD DISCHARGE INSTRUCTION Observed: 07/20/2017 Status: F Source: ELKO 7:04 PM [facility] REPOSITORY [facility] Medical Records Department [address] [place] [address] Discharge Instruction 07/20/17 1858 MR#: [id number] Acct: [id number] Name: RFUINO LEIVA Rep #: [id number] : 1965 52 From: Brittany Huff MD PCP: Doug Layton MD, Chi Status: REG ER ED Disposition - Plan for ED Patient: Disposition: Home or Assisted Living Chief Complaint: Anxiety Instructions: ED Seizure Recurrent Prescriptions: Diazepam 1 each RECTAL X1 PRN #1 kit PRN Reason: Seizure Referrals: Doug Layton Chi, MD [Primary Care Provider] - Additional Instructions: Increase Depakote to three times a day and have Depakote level rechecked in 1 week. What to do if you have Problems For any increased pain, shortness of breath, bleeding, nausea or vomiting, chest pain, or any unexpected problems, contact your Primary Care Provider. Call [facility] ([phone]) or report to the closest Emergency Room. Call 911 if necessary. 07/20/17 1904 <Electronically signed by Brittany Huff MD> Date Brittany Huff MD Cosigner Signature (If Indicated): Date CC: Doug Layton MD CBC W/DIFF, AUTOMATED Collected: 07/20/2017 Status: F Source: DEVON 5:41 PM [facility] REPOSITORY TYPE CODE TESTS RESULT OUT OF RANGE REFERENCE UNITS LAB L100.1000 4.4-11.0 K/mm3 Normal WBC 7.0 LAB L100.1200 4.6-6.2 M/mm3 Normal RBC 4.83 LAB L100.1300 13.0-16.5 g/dl Normal HGB 14.6 LAB L100.1400 40-54 % Normal HCT 43.5 LAB L100.1500 80-94 fL Normal MCV 90.1 LAB L100.1600 27.0-32.0 pg Normal MCH 30.2 LAB L100.1700 32-36 g/gl Normal MCHC 33.6 LAB L100.1810 11.6-14.6 % Normal RDW CV 14.5 LAB L100.1820 35.1-43.9 fl High RDW SD 47.8 LAB L100.1900 150-450 K/mm3 Normal PLT 179 LAB L100.2000 6.2-12.0 fl Normal MPV 9.2 LAB L100.2100 47-70 % Normal NEUT% 62.7 LAB L100.2200 19-41 % Normal LY% 28.2 LAB L100.2300 0-10 % Normal MONO% 7.3 LAB L100.2400 0-5 % Normal EO% 1.1 LAB L100.2500 0-1 % Normal BASO% 0.4 LAB L100.2550 0.0-0.9 % Normal IM GRAN % 0.300 Result Comment: IG% - Immature Granulocytes (promyelocytes, myelocytes and metamyelocytes) > 1% indicates that a LEFT SHIFT is Present. LAB L100.2620 2.0-7.7 X10 3/uL Normal Absolute Neut 4.4 LAB L100.2720 0.83-4.51 X10 3/ul Normal Absolute Lymph 1.98 Performed By: #### L100.0100 #### [facility] [address] [place] [place], [address] BASIC METABOLIC Collected: 07/20/2017 Status: F Source: ELKO PROFILE (BMP) 5:41 PM [facility] REPOSITORY TYPE CODE TESTS RESULT OUT OF RANGE REFERENCE UNITS LAB L501.0100 74-106 mg/dL High GLU 136 Result Comment: Fasting Glucose result greater than or equal to 126 mg/dL suggests DIABETES MELLITUS per A.D.A. criteria. Please note revised GLUCOSE reference range effective 2017. LAB L501.1000 7-18 mg/dL Normal BUN 13 LAB L501.1100 0.70-1.30 mg/dL Normal CREAT,SERUM 0.81 Result Comment: The validity of the calculated GFR AND GFRAA in patients over 70 years has not been determined. Clinical correlation is essential. LAB L501.1110 >60 mL/min Normal EST GFR 106 Result Comment: Non- GFR Calc LAB L501.1115 >60 mL/min Normal EST GFR - AA 128 Result Comment: GFR Calc LAB L501.1255 ml/min Normal Estimated CRCL 107.65 LAB L501.1300 10-20 RATIO BUN/CRE Normal 16.1 LAB L501.2200 8.5-10 mg/dL .1 CA Normal 8.7 LAB L501.5300 136-14 mmol/L Low 5 NA 133 LAB L501.5600 3.5-5. mmol/L Low 1 K 3.3 LAB L501.5900 98-107 mmol/L CL Normal 100 LAB L501.6100 21.0-3 mmol/L 2.0 CO2 Normal 24.0 LAB L501.6200 5-15 GAP Normal 9 Performed By: #### L500.2500 #### [facility] [address] [place] [place], [address] VALPROIC ACID Collected: 07/20/2017 Status: F Source: [place] (DEPAKENE) LEVEL 5:41 PM [facility] REPOSITORY TYPE CODE TESTS RESULT OUT OF RANGE REFERENCE UNITS LAB L501.8100 50-100 ug/mL Normal VALPROIC ACID 58 Performed By: #### L501.8100 #### [facility] [address] [place], [address] LIVER PROFILE Collected: 07/10/2017 Status: F Source: DEVON 8:13 AM [facility] REPOSITORY Order Comment: Order Date: 01/16/17 Order Info: 0788-1 - *Hepatic Function Panel Order Info: [id number] - *Lipid Profile CC PCP Comments: 12 hours fasting, may have water. TYPE CODE TESTS RESULT OUT OF RANGE REFERENCE UNITS LAB L501.1500 6.4-8.2 g/dL Normal T PROT 7.3 LAB L501.1800 3.2-5.0 g/dL Normal ALB 3.9 LAB L501.1950 2.2-4.2 g/dL Normal GLOB 3.4 LAB L501.4100 15-37 U/L Normal AST 19 LAB L501.4305 45-117 U/L Normal ALK P 76 LAB L501.4405 16-61 U/L Normal ALT 26 Result Comment: Please note revised ALT reference range effective 2017. LAB L501.4600 0.20-1.00 mg/dL Normal T BILI 0.40 LAB L501.4700 0.00-0.30 mg/dL Normal D BILI 0.10 Performed By: #### L500.3400 #### [facility] [address] [place], [address] LIPID PROFILE Collected: 07/10/2017 Status: F Source: DEVON 8:13 AM [facility] REPOSITORY Order Comment: Order Date: 01/16/17 Order Info: [id number] - *Hepatic Function Panel Order Info: [id number] - *Lipid Profile CC PCP Comments: 12 hours fasting, may have water. TYPE CODE TESTS RESULT OUT OF RANGE REFERENCE UNITS LAB L501.4900 200 mg/dL Normal CHOL 122 Result Comment: <200 mg/dL Desirable 200-240 mg/dL Borderline >240 mg/dL High Risk LAB L501.5000 mg/dL Normal TRIG 99 Result Comment: The drugs N-Acetylcysteine and Metamizole may falsely depress this assay. Serum Triglycerides Reference Interval Normal <150 mg/dL Borderline high 150 - 199 mg/dL High 200 - 499 mg/dL Very High > or = 500 mg/dL LAB L501.6400 mg/dL Normal HDL 41 Result Comment: The drugs N-Acetylcysteine and Metamizole may falsely depress this assay. Reference Range HDL <40 mg/dL Low HDL Cholesterol HDL >or= 60 mg/dL High HDL Cholesterol LAB L501.6500 0-130 mg/dL Normal LDL 61 LAB L501.6600 5-40 mg/dL Normal VLDL 20 Performed By: #### L500.4100 #### [facility] [address] [facility] [place], [address] 12 LEAD ELECTROCARDIOGRAM Observed: 06/19/2017 Status: F Source: ELKO 1:45 PM [facility] REPOSITORY [facility] Cardiovascular Services [address] [place] [address] 12 Lead EKG 06/11/17 1737 MR#: [id number] Acct: [id number] Name: RUFINO LEIVA Rep #: [id number] : 1965 52 From: Carson Hansen MD Attending Dr: Status: DEP ER Ordering Dr: Giselle Henry MD Date: 06/11/17 Location: ED Sex: M C Admitted: Test Reason : MENTAL HEALTH Blood Pressure : / mmHG Vent. Rate : 068 BPM Atrial Rate : 068 BPM P-R Int : 158 ms QRS Dur : 078 ms QT Int : 406 ms P-R-T Axes : 037 005 029 degrees QTc Int : 431 ms Normal sinus rhythm Normal ECG Confirmed by TYRONE REED, CARSON ([id number]), acquisitions editor IMMANUEL MERIDA ([id number]) on 06/19/2017 1:44:49 PM Referred By: BRYANT Confirmed By:CARSON HANSEN MD 06/19/17 1344 Date Carson Hansen MD CC: Giselle Henry MD; Doug Layton MD Signed A1C Collected: 06/17/2017 Status: F Source: [facility] 7:23 AM [facility] REPOSITORY TYPE CODE TESTS RESULT OUT OF RANGE REFERENCE UNITS LAB A1C(LOINC) 4.0-6.0 % Hgb A1c 5.0 Performed By: #### A1C, VALPR #### [facility] [address] [place] [address] VALPR Collected: 06/17/2017 Status: F Source: [facility] 7:23 AM [facility] REPOSITORY TYPE CODE TESTS RESULT OUT OF REFERENCE UNITS RANGE LAB LD017(LOIN C) LDose Valproic Unknown Acid: LAB VALP(LOINC 50-130 mcg/mL ) Valproic Acid 62 Lvl Performed By: #### A1C, VALPR #### [facility] [address] [place], [place] [id number] EMERGENCY DEPARTMENT Observed: 06/12/2017 Status: F Source: ELKO SUMMARY 12:56 AM [facility] REPOSITORY [facility] Medical Records Department [address] [place] [address] Emergency Department Summary 06/11/17 1733 MR#: [id number] Acct: [id number] Name: RUFINO LEIVA Rep #: [id number] : 1965 52 From: Giselle Henry MD PCP: Calin REED,Doug Jacobs Status: REG ER - ER Visit Summary Date of Service: 06/11/17 Chief Complaint: Suicidal ideation History of Present Illness: The patient is a 52 M presenting with suicidal ideation. Patient was seen by his psychiatrist today and sent into the ED for inpatient psychiatric admission. He has been experiencing suicidal ideation, visual and auditory hallucinations. No recent change in medications. History of schizophrenia. Physical Examination: Vitals are stable. Patient is afebrile. Alert no acute distress. HEENT exam is unremarkable. Neck is supple. Lungs are clear and equal bilaterally. Heart is regular rate and rhythm. Abdomen is soft nontender nondistended. Extremities are unremarkable. Skin is warm and dry. No focal neurologic deficit. Depressed affect with suicidal thoughts Remainder of exam is unremarkable. Emergency Department Course and Treatment: CBC, chemistries unremarkable other than sodium 132. Liver enzymes are normal. urinalysis unremarkable. Tox positive for benzos. Alcohol negative. EKG is sinus rhythm rate of 68. Discussed with the counseling center for evaluation. Disposition: Per counseling center Impression: Suicidal ideation This note was generated with Dragon dictation software. It may contain incorrect words, spelling, and punctuation that were not noted in review of the chart prior to signing ED Disposition - Plan for ED Patient: Chief Complaint: Suicidal Referrals: Doug Layton Chi, MD [Primary Care Provider] - What to do if you have Problems For any increased pain, shortness of breath, bleeding, nausea or vomiting, chest pain, or any unexpected problems, contact your Primary Care Provider. Call [facility] ([phone]) or report to the closest Emergency Room. Call 911 if necessary. 06/12/17 0056 <Electronically signed by Giselle Henry MD> Date Giselle Henry MD Cosigner Signature (If Indicated): Date CC: Doug Layton MD URINE DRUG SCREEN Collected: 06/11/2017 Status: F Source: DEVON (VISTA) 5:25 PM [facility] REPOSITORY TYPE CODE TESTS RESULT OUT OF RANGE REFERENCE UNITS LAB L505.0075 TO BE Normal CONFIRMED Result Comment: CONFIRMATORY TESTING FOR ALL POSITIVE URINE DRUG SCREEN RESULTS WILL ONLY BE SENT OUT UPON PHYSICIAN ORDER. VISTA Urine Drug Screen methods provide only preliminary analytical test results. A more specific alternate chemical method must be used in order to obtain a confirmed analytical result. Gas chromatography/mass spectrometery (GC/MS) is the preferred confirmatory method. Clinical consideration and professional judgement should be applied to any drug of abuse test result, particularly when preliminary positive results are used. URINE TCA TESTING MUST BE ORDERED SEPARATELY. USE TEST MNEMONIC: [facility]CA LAB L505.5005 VISTA UDS PH 7 Normal LAB L505.5015 <1000 ng/mL AMPHETAMINES Normal NEGATIVE LAB L505.5025 < 200 ng/mL BARBITIURATES Normal NEGATIVE LAB L505.5035 < 200 High ng/mL BENZODIAZIPINE POSITIVE LAB L505.5045 < 300 ng/mL COCAINE Normal NEGATIVE LAB L505.5055 < 500 ng/mL ECSTACY Normal NEGATIVE LAB L505.5065 < 300 ng/mL METHADONE Normal NEGATIVE LAB L505.5075 < 300 ng/mL OPIATES Normal NEGATIVE LAB L505.5085 < 25 ng/mL PCP Normal NEGATIVE LAB L505.5095 < 50 ng/mL THC Normal NEGATIVE Performed By: #### L505.5000 #### [facility] [address] [facility] [place], [place], [id number] URINALYSIS, COMPLETE Collected: 06/11/2017 Status: F Source: ELKO 5:25 PM [facility] REPOSITORY Order Comment: How was Urine Obtained? ADVERTISING INSERTER TO SPECIFY TYPE CODE TESTS RESULT OUT OF RANGE REFERENCE UNITS LAB L400.3000 Yellow COLOR Normal Yellow LAB L400.3050 Clear Normal CLARITY Sl. Cloudy LAB L400.3200 Normal mg/dl Normal GLUCOSE, UR Normal LAB L400.3300 Negative mg/dL Normal BILIRUBIN URINE Negative LAB L400.3400 Negative mg/dl Normal KETONE UR Negative LAB L400.3465 1.002-1.030 Normal SP.GR. DIPSTX 1.010 LAB L400.3550 5.0 - 8.0 pH UR Normal 7.0 LAB L400.3600 Negative mg/dl PROT Normal DIPSTX Negative LAB L400.3700 Normal mg/dl High 1 UROBILI LAB L400.3750 Negative Normal NITRITE UR Negative LAB L400.3780 Negative /ul High 25 OCCULT BLOOD-UR LAB L400.3800 Negative /ul LEUK Normal ESTERASE Negative LAB L400.4050 0-5 /hpf WBC 0 Normal SEEN LAB L400.4100 0-5 /hpf Normal RBC-UA 0-5 SEEN LAB L400.4150 0-5 /hpf SQUAM Normal EPI 0-5 SEEN LAB L400.4300 None Seen /hpf 0 Normal BACTERIA SEEN LAB L400.4350 <or=2+ /hpf 0 Normal MUCUS, URINE SEEN Performed By: #### L400.0001 #### [facility] [address] [facility] [place], [address] CBC W/DIFF, AUTOMATED Collected: 06/11/2017 Status: F Source: ELKO 5:00 PM [facility] REPOSITORY TYPE CODE TESTS RESULT OUT OF RANGE REFERENCE UNITS LAB L100.1000 4.4-11.0 K/mm3 Normal WBC 7.1 LAB L100.1200 4.6-6.2 M/mm3 Normal RBC 4.64 LAB L100.1300 13.0-16.5 g/dl Normal HGB 14.2 LAB L100.1400 40-54 % Normal HCT 42.0 LAB L100.1500 80-94 fL Normal MCV 90.5 LAB L100.1600 27.0-32.0 pg Normal MCH 30.6 LAB L100.1700 32-36 g/gl Normal MCHC 33.8 LAB L100.1810 11.6-14.6 % High RDW CV 14.8 LAB L100.1820 35.1-43.9 fl High RDW SD 48.9 LAB L100.1900 150-450 K/mm3 Normal PLT 154 LAB L100.2000 6.2-12.0 fl Normal MPV 10.1 LAB L100.2100 47-70 % Normal NEUT% 56.6 LAB L100.2200 19-41 % Normal LY% 31.2 LAB L100.2300 0-10 % Normal MONO% 9.4 LAB L100.2400 0-5 % Normal EO% 1.7 LAB L100.2500 0-1 % Normal BASO% 0.7 LAB L100.2550 0.0-0.9 % Normal IM GRAN % 0.400 Result Comment: IG% - Immature Granulocytes (promyelocytes, myelocytes and metamyelocytes) > 1% indicates that a LEFT SHIFT is Present. LAB L100.2620 2.0-7.7 X10 3/uL Normal Absolute Neut 4.0 LAB L100.2720 0.83-4.51 X10 3/ul Normal Absolute Lymph 2.22 Performed By: #### L100.0100 #### [facility] [address] [facility] [place], [address] ALCOHOL, BLOOD Collected: 06/11/2017 Status: F Source: DEVON (MEDICAL)-SERUM 5:00 PM [facility] REPOSITORY TYPE CODE TESTS RESULT OUT OF RANGE REFERENCE UNITS LAB L501.9100 mg/dL Normal SERUM < 3.0 ETOH Result Comment: The serum:whole blood ethanol ratio is approximately 1.14 and varies slightly with hematocrit. Medical Alcohol reference interval and critical value in non-tolerant individuals; 50 - 100 Impairment 100 Intoxication 100 - 250 Severe Poisoning 250 - 400 Deep/possible fatal coma Performed By: #### L501.9100 #### [facility] [address] [place], [place], [address] LIVER PROFILE Collected: 06/11/2017 Status: F Source: ELKO 5:00 PM [facility] REPOSITORY TYPE CODE TESTS RESULT OUT OF RANGE REFERENCE UNITS LAB L501.1500 6.4-8.2 g/dL Normal T PROT 7.3 LAB L501.1800 3.2-5.0 g/dL Normal ALB 4.0 LAB L501.1950 2.2-4.2 g/dL Normal GLOB 3.3 LAB L501.4100 15-37 U/L Low AST 11 LAB L501.4305 45-117 U/L Normal ALK P 67 LAB L501.4405 16-61 U/L Normal ALT 20 Result Comment: Please note revised ALT reference range effective 2017. LAB L501.4600 0.20-1.00 mg/dL Normal T BILI 0.30 LAB L501.4700 0.00-0.30 mg/dL Normal D BILI 0.09 Performed By: #### L500.3400 #### [facility] [address] [place], [place], [address] BASIC METABOLIC Collected: 06/11/2017 Status: F Source: ELKO PROFILE ([facility]) 5:00 PM [facility] REPOSITORY TYPE CODE TESTS RESULT OUT OF RANGE REFERENCE UNITS LAB L501.0100 74-106 mg/dL Normal GLU 90 Result Comment: Please note revised GLUCOSE reference range effective 2017. LAB L501.1000 7-18 mg/dL Normal BUN 9 LAB L501.1100 0.70-1.30 mg/dL Normal CREAT,SERUM 0.72 Result Comment: The validity of the calculated GFR AND GFRAA in patients over 70 years has not been determined. Clinical correlation is essential. LAB L501.1110 >60 mL/min Normal EST GFR 122 Result Comment: Non- GFR Calc LAB L501.1115 >60 mL/min Normal EST GFR - AA 147 Result Comment: GFR Calc LAB L501.1255 ml/min Normal Estimated CRCL 136.37 LAB L501.1300 10-20 RATIO BUN/CRE Normal 12.6 LAB L501.2200 8.5-10 mg/dL Low .1 CA 8.4 LAB L501.5300 136-14 mmol/L Low 5 NA 132 LAB L501.5600 3.5-5. mmol/L 1 K Normal 3.8 LAB L501.5900 98-107 mmol/L Low CL 97 LAB L501.6100 21.0-3 mmol/L 2.0 CO2 Normal 28.0 LAB L501.6200 5-15 GAP Normal 7 Performed By: #### L500.2500 #### [facility] [address] [place], [place], [address] ALLERGIES ALLERGIES DATE TYPE / CODE NAME / CODE REACTION SEVERITY SOURCE 03/11/2018 Drug ziprasidone syncope SV [place] Allergy/416 HCl/[id number]([facility] [id number]([facility]) Repository 03/11/2018 Drug ziprasidone syncope SV [place] Allergy/416 mesylate/[id number] [facility] [id number]([facility]) Repository 03/11/2018 Drug venom-honey Swelling Unknown [place] Allergy/416 bee/[id number]([place] [id number]([facility] ED CT) Repository ENCOUNTERS ENCOUNTERS ADMIT/DISCHARGE ACCOUNT NUMBER ADMITTING ENCOUNTER LOCATION SOURCE CLASS 04/08/2018 [id number] Ambulatory [facility] ding:CT Repository 03/25/2018 [id number] Ambulatory [facility] ding:[facility] Repository 03/22/2018 [id number] Ambulatory [facility]: [place] [facility] Repository 03/22/2018 [id number] Ambulatory [facility] ding:POLAB3 Repository 03/15/2018/03/15/20 [id number] Ambulatory BMSBuilding: [place] 18 [facility] Repository 03/05/2018/03/05/20 [id number] Ambulatory [address] ding:SDCRoom Repository : AC01 12/08/2017/12/10/19 [id number] Emergency [place] ding:ED Repository 09/18/2017 [id number] Ambulatory [facility] ding:POLAB3 Repository 08/31/2017/09/01/19 [id number] BIBIANA MERIDA Ambulatory Building:[address] Repository 08/03/2017/08/04/19 [id number] Ambulatory BMSBuilding: [place] 18 [facility] Repository 07/20/2017/07/21/19 [id number] Emergency [address] ding:ED Repository 07/10/2017 [id number] Ambulatory [facility] ding:LAB Repository 06/11/2017/06/14/19 [id number] Emergency [address] ding:ED Repository 06/11/2017 [id number] Ambulatory BMSBuilding: [place] [facility] Repository PAYERS PAYERS ENCOUNTER GUARANTOR PAYER SUBSCRIBER SOURCE 04/08/2018 RUFINO Jacobson Primary RUFINO Osorio [id number] B[place] Insurance:MEDICAIDPol ROMERDOB: [address] icy Number: [id number] [address]jh: [id number] Repository Date:2018-03-31 () 04/08/2018 Secondary NOT GIVENUNK [place] Insurance:SELF PAY [facility] Number: Effective Repository Date:2018-03-31 03/25/2018 RUFINO T Primary RUFINO [place] [id number] [place] Insurance:MEDICAIDPol ROMERDOB: [facility]ly [facility] DRSUITE icy Number: [id number] [id number] Repository [address]Hqo: 330) Date:2018-03-15 [phone] () 03/25/2018 Secondary NOT GIVENUNK [place] Insurance:SELF PAY [facility] Number: Effective Repository Date:2018-03-15 03/22/2018 RUFINO T Primary RUFINO Osorio [id number] [place] Insurance:MEDICAIDPol ROMERDOB: [facility]ly [facility] DRSUITE icy Number: [id number] [id number] Repository [address]Dvt: (330) Date:2018-03-22184 () 03/22/2018 Secondary NOT GIVENUNK [place] Insurance:SELF PAY [facility] Number: Effective Repository Date:2018-03-22 03/22/2018 RUFINO Jacobson Primary RUFINO Jacobson [place] [id number] [place] Insurance:MEDICAIDPol ROMERDOB: Community DRSUITE icy Number: [id number] [id number] Repository [address]Dji: (330) Date:2018-03-22184 () 03/22/2018 Secondary NOT GIVENUNK [place] Insurance:SELF PAY [facility] Number: Effective Repository Date:2018-03-22 03/15/2018 RUFINO Jacobson Primary RUFINO Jacobson [place] [id number] [place] Insurance:MEDICAIDPol ROMERDOB: [facility]ly [facility] DRSUITE icy Number: [id number] [id number] Repository [address]Fqe: (330) Date:2017-08-03184 () 03/15/2018 Secondary NOT GIVENUNK [place] Insurance:SELF PAY [facility] Number: Effective Repository Date:2018-03-15 03/05/2018 RUFINO Jacobson Primary RUFINO Jacobson [place] [id number] [place] Insurance:MEDICAIDPol ROMERDOB: Community DRSUITE icy Number: [id number] [id number] Repository [address]Cxk: (330) Date:2018-02-01184 () 03/05/2018 Secondary NOT GIVENUNK [place] Insurance:SELF PAY [facility] Number: Effective Repository Date:2018-02-01 12/08/2017 Rufino Jacobson Primary Rufino Jacobson [place] [id number] [place] Insurance:MEDICAIDPol RomerDOB: Community DrSuite icy Number: [id number] [id number] Repository [address]Nwg: (330) Date:2017-12-08184 () 12/08/2017 Secondary NOT GIVENUNK [place] Insurance:SELF PAY [facility]: Effective Repository Date:2017-12-08 09/18/2017 Rufino T Primary Rufino Jacobson [place] [id number] [place] Insurance:MEDICAIDPol RomerDOB: Community DrSuite icy Number: [id number] [id number] Repository 266[address]Axz: (330) Date:2017-09-18 [phone] () 09/18/2017 Secondary NOT GIVENUNK [place] Insurance:SELF PAY [facility] Number: Effective Repository Date:2017-09-18 08/31/2017 RUFINO T Primary RUFINO Jacobson [place] ROMERDOB: Insurance:MEDICAIDPol ROMERDOB: [facility] icy Number: [id number] Repository NIXON PETERS [id number] N[place] PETERS [address], Date:[id number] [address]Qya: 2645[facility] [address]Vot: [phone]: (330) () [phone] () 08/03/2017 Rufino T Primary Rufino Jacobson [place] [id number] [place] Insurance:MEDICAIDPol RomerDOB: Community DrSuite icy Number: [id number] [id number] Repository 290[address]Wko: (330) Date:2017-04-06 [phone] () 08/03/2017 Secondary NOT GIVENUNK [place] Insurance:SELF PAY [facility] Number: Effective Repository Date:2017-04-06 07/20/2017 Rufino T Primary Rufino Jacobson [place] [id number] [place] Insurance:MEDICAIDPol RomerDOB: Community DrSuite icy Number: [id number] [id number] Repository [address]Olp: (330) Date:2017-07-20 [phone] () 07/20/2017 Secondary NOT GIVENUNK [place] Insurance:SELF PAY [facility] Number: Effective Repository Date:2017-07-20 07/10/2017 Rufino Jacobson Primary Rufino Jacobson [place] [id number] [place] Insurance:MEDICAIDPol RomerDOB: Community Dr[facility] icy Number: [id number] [id number] Repository [address]Mos: (330) Date:2017-07-10 [phone] () 07/10/2017 Secondary NOT GIVENUNK [place] Insurance:SELF PAY [facility] Number: Effective Repository Date:2017-07-10 06/11/2017 Rufino T Primary Rufino Jacobson [place] [id number] [place] Insurance:MEDICAIDPol RomerDOB: Community DrSuite icy Number: [id number] [id number] Repository [address]Qny: (330) Date:2017-06-11 [phone] () 06/11/2017 Secondary NOT GIVENUNK [place] Insurance:SELF PAY [facility] Number: Effective Repository Date:2017-06-11 06/11/2017 Rufino Jacobson Primary Rufino Jacobson [place] [id number] [place] Insurance:MEDICAIDPol RomerDOB: Community DrSuite icy Number: [id number] [id number] Repository 555[address]Kxc: (330) Date:2017-06-11 [phone] () 06/11/2017 Secondary NOT GIVENUNK [place] Insurance:SELF PAY [facility] Number: Effective Repository Date:2017-06-11
== END ==
PROVIDERS: Family Provider Family Medicine Geriatric Medicine; PCP Family Medicine Geriatric Medicine; Referring Provider Family Medicine Geriatric Medicine; Visit Provider Family Medicine Geriatric Medicine
DX: Z87.891 Personal history of nicotine dependence (principal)
CPT/HCPCS: 71250

== ENCOUNTER → 2018-10-19 09:07 | Outpatient (CLI) | payer MEDICAID, SELFPAY ==
[2018-09-27 14:04] VITALS: BMI 28.3
--- NOTE | 2018-10-19 09:13 | STEWCON_ITS ---
Reason For Study: CHEST PAIN Stress Results Protocol: Dobutamine Stress Echocardiogram Maximum Predicted HR: 165 bpm Target HR: 140 bpm % Maximum Predicted HR: 86 % DurationHeart Rate Stage (mm:ss) (bpm) BP Comment BASELINE 64 120/762 CC DEFINITY DOBUTAMINE STAGE 1 4:00 69 182/791 CC DEFINITY DOBUMTAINE STAGE 2 3:00 88 183/93 DOBUTAMINE STAGE 3 3:00 140 161/97.25 MG ATROPINE DOBUTAMINE STAGE 4 1:36 142 / 1CC DEFINITY RECOVERY 100 129/641CC DEFINITY Stress Duration: 11:36 mm:ss Maximum Stress HR: 142 bpm Baseline Echocardiogram Findings The estimated ejection fraction is 65 %. Stress Echo Wall motion Data Resting WM Intermediate WM Stress WM Resting Wall Motion Wall Motion Stress No regional wall motion No regional wall motion abnormalities noted. abnormalities noted. EKG Data The baseline ECG displays normal sinus rhythm. The patient was titrated from 10 mcg to a maximum of 40 mcg of dobutamine during the stress. The maximum heart rate attained was 142 beats per minute. This was 86% of maximum predicted heart rate. During dobutamine infusion, there were no ST or T wave changes noted to suggest ischemia. No clinical angina was noted. Interpretation Summary The estimated ejection fraction is 65 %. Normal, adequate, dobutamine echocardiogram. Negative for ischemia by EKG and echocardiographic criteria. No anginal symptoms noted. Rare PVCs noted. Appropriate blood pressure response to dobutamine. Final LVEF of 75%. Test terminated due to attainment target heart rate. Decreased sensitivity due to poor echo windows requiring Definity agent. No complications. The study was technically difficult. Contrast injection was performed. Ordering Physician: Thor Slater MD Referring Physician: Thor Slater Performed By: Rivera Chaudhry RCS
== END ==
PROVIDERS: Referring Provider Internal Medicine Cardiovascular Disease; Visit Provider Internal Medicine Cardiovascular Disease
DX: R07.9 Chest pain, unspecified (principal); E11.9 Type 2 diabetes mellitus without complications; E78.5 Hyperlipidemia, unspecified; Z72.0 Tobacco use
CPT/HCPCS: 93017; 93350; J7040; Q9957; A4216; C8928

== ENCOUNTER → 2019-06-27 12:55 | Outpatient (CLI) | payer MEDICAID, SELFPAY ==
[2018-09-27 14:04] VITALS: BMI 28.3
--- NOTE | 2019-06-27 12:57 | CT_ITS ---
STUDY: LOW DOSE CT LUNG CANCER SCREENING REASON FOR EXAM: Male, 54 years old. RADIATION DOSAGE (If Supplied By Facility): CTDIvol = ( 2.55 ) mGy, DLP = ( 73.72 ) mGycm TECHNIQUE: No contrast was administered. Low dose technique was utilized (average mAS-38 and kVp 120). 1.25 mm axial source images with a slice interval of 1.25-mm were reconstructed in lung windows. 2.5 mm axial source images with a slice interval of 2.5-mm were reconstructed in lung windows. 5.0 mm axial source images with a slice interval of 5.0-mm were reconstructed in soft tissue windows. Nodule measured using lung windows on PACS and/or independent workstation with automated measurement of minimum and maximum diameter. Nodule measurement reported as average diameter rounded to the nearest whole number. Growth is defined as an increase ins size of greater than 1.5 mm. COMPARISON: CT chest 04/08/2018, CT abdomen and pelvis 01/30/2012. FINDINGS: Stable 3 mm noncalcified nodule seen in the posterior medial superior segment of the left lower lobe on series 1002 image 69. Stable 3 mm anterior right upper lobe subpleural nodule on image 93. Stable 3 mm right middle lobe subpleural nodule on image 137. Stable 4 mm right lower lobe nodule on image 137 is unchanged since 2011. Stable 2 mm left lower lobe nodule on image 128. No new pulmonary nodule. No focal pulmonary consolidation. There is no demonstrated pleural abnormality. Normal heart and pericardium. There are calcifications of the coronary arteries. Normal mediastinum. Normal hilar regions. Normal unenhanced pulmonary arteries. There is atherosclerotic calcification of the aortic arch and takeoff of the left subclavian artery. There are multi-level degenerative changes of the thoracic spine. There is no demonstrated abnormality of the visualized upper abdomen. CT/Low Dose CT Lung Screening IMPRESSION: Lung-RADS category 2 - Continue annual screening with LDCT in 12 months. IMPORTANT NOTES FOR USE: ACR Lung-RADS Version 1.0 Assessment Categories Release Date: August 22, 2013 Category: Coded 0-4 bases on nodule(s) with highest degree of suspicion. Negative screen is defined as categories 1 and 2; a positive screen is defined as categories 3 and 4. Category 3 and 4A nodules that are unchanged on interval CT should be coded as category 2, and individuals returned to screening in 12 months. Category 4X: Category 3 or 4 nodules with additional imaging findings that increase the suspicion of lung cancer, such as spiculation, GGN that doubles in size in 1 year, enlarged lymph notes, etc. Category Modifiers: S (significant finding unrelated to lung cancer) and C (prior history of treated lung cancer) may be added to the 0-4 Lung-RADS Electronically Signed: Leah Valerio, at 13:32 EST Tel , Service support ,
== END ==
PROVIDERS: Referring Provider Internal Medicine Pulmonary Disease; Visit Provider Internal Medicine Pulmonary Disease
DX: Z12.2 Encounter for screening for malignant neoplasm of respiratory organs (principal); Z87.891 Personal history of nicotine dependence
CPT/HCPCS: G0297

== ENCOUNTER → 2020-03-02 | Outpatient (CLI) | payer MEDICAID, SELFPAY ==
[2018-09-27 14:04] VITALS: BMI 28.3
== END | disposition home or self-care (01) ==
LOC: LABSPEC 11:18
DX: N52.9 Male erectile dysfunction, unspecified (principal)
CPT/HCPCS: 84403

== ENCOUNTER → 2020-06-26 13:02 | Outpatient (CLI) | payer MEDICAID, SELFPAY ==
[2018-09-27 14:04] VITALS: BMI 28.3
--- NOTE | 2020-06-26 13:05 | CT_ITS ---
STUDY: LOW DOSE CT LUNG CANCER SCREENING REASON FOR EXAM: Male, 55 years old. NICOTINE DEPENDENCY RADIATION DOSAGE (If Supplied By Facility): CTDIvol = ( 3.40 ) mGy, DLP = ( 110.61 ) mGycm TECHNIQUE: No contrast was administered. Low dose technique was utilized (average mAS-38 and kVp 120). 1.25 mm axial source images with a slice interval of 1.25-mm were reconstructed in lung windows. 2.5 mm axial source images with a slice interval of 2.5-mm were reconstructed in lung windows. 5.0 mm axial source images with a slice interval of 5.0-mm were reconstructed in soft tissue windows. Nodule measured using lung windows on PACS and/or independent workstation with automated measurement of minimum and maximum diameter. Nodule measurement reported as average diameter rounded to the nearest whole number. Growth is defined as an increase ins size of greater than 1.5 mm. COMPARISON: Comparison is made with prior study dated 06/27/2019. NODULES: Stable 3 mm noncalcified nodule in the posterior medial superior segment of the left lower lobe. Stable 3 mm noncalcified nodule along the anterior aspect of the right upper lobe. Stable 2 mm noncalcified right middle lobe nodule. Stable 2 mm nodule in the left lower lobe. Emphysema: Endobronchial lesion: Aorta: Atherosclerotic calcification of the aortic arch. Coronary arteries: Coronary artery calcification. Heart: Unremarkable Pulmonary artery: Unremarkable CT/Low Dose CT Lung Screening IMPRESSION: Lung-RADS category 2 - Continue annual screening with LDCT in 12 months. IMPORTANT NOTES FOR USE: ACR Lung-RADS Version 1.0 Assessment Categories Release Date: August 22, 2013 Category: Coded 0-4 bases on nodule(s) with highest degree of suspicion. Negative screen is defined as categories 1 and 2; a positive screen is defined as categories 3 and 4. Category 3 and 4A nodules that are unchanged on interval CT should be coded as category 2, and individuals returned to screening in 12 months. Category 4X: Category 3 or 4 nodules with additional imaging findings that increase the suspicion of lung cancer, such as spiculation, GGN that doubles in size in 1 year, enlarged lymph notes, etc. Category Modifiers: S (significant finding unrelated to lung cancer) and C (prior history of treated lung cancer) may be added to the 0-4 Lung-RADS Electronically Signed: Trell Pruitt MD at 15:29 EST , Service support ,
== END ==
PROVIDERS: Referring Provider Internal Medicine Pulmonary Disease; Visit Provider Internal Medicine Pulmonary Disease
DX: Z87.891 Personal history of nicotine dependence (principal)
CPT/HCPCS: 71271